=== PATIENT | male | born 1960 | race Caucasian/White ===

== ENCOUNTER → 2017-12-15 11:41 | Outpatient (CLI) | payer OTHER, SELFPAY ==
[2016-07-15 10:35] VITALS: BMI 30.8
[2017-12-15 15:42] LABS: Anion Gap 7 (5-15); BUN 18 mg/dL (7-18); BUN/Creat Ratio 17.8 RATIO (10-20); Calcium,Total 8.3 mg/dL (8.5-10.1); Chloride 107 mmol/L (98-107); Creatinine, Serum 1.01 mg/dL (0.70-1.30); EST Glomerular Filtration Rate 82 mL/min (>60); Est Glom Filt Rate - Afr Amer 99 mL/min (>60); Glucose 147 mg/dL (74-106); Sodium Level 138 mmol/L (136-145)
== END ==
PROVIDERS: Family Provider Family Medicine; PCP Family Medicine; Visit Provider Family Medicine
DX: E11.9 Type 2 diabetes mellitus without complications (principal)
CPT/HCPCS: 36415; 80048

== ENCOUNTER → 2018-07-27 11:11 | Outpatient (CLI) | payer OTHER, SELFPAY ==
[2016-07-15 10:35] VITALS: BMI 30.8
[2018-07-27 12:31] LABS: Anion Gap 8 (5-15); BUN 16 mg/dL (7-18); Chloride 106 mmol/L (98-107); Creatinine, Serum 0.94 mg/dL (0.70-1.30); EST Glomerular Filtration Rate 88 mL/min (>60); Est Glom Filt Rate - Afr Amer 107 mL/min (>60); Glucose 134 mg/dL (74-106); Potassium 4.5 mmol/L (3.5-5.1); Sodium Level 140 mmol/L (136-145)
[2018-07-27 12:55] LABS: Microalbumin:Creatinine Ratio 123.6 mg/g CRE (<30 mg/g CRE)
== END ==
PROVIDERS: Family Provider Family Medicine; PCP Family Medicine; Visit Provider Family Medicine
DX: E11.9 Type 2 diabetes mellitus without complications (principal)
CPT/HCPCS: 36415; 80048; 82043; 82570

== ENCOUNTER → 2019-03-22 16:55 | Outpatient (CLI) | payer OTHER, SELFPAY ==
[2016-07-15 10:35] VITALS: BMI 30.8
[2019-03-22 17:34] LABS: Absolute Lymphocyte Count 2.22 X10^3/uL (0.83-4.51); Absolute Neutrophil Count 4.4 X10^3/uL (2.0-7.7); Basophil# 0.04 X10^3/uL; Basophil% 0.5 % (0-1); Eosinophils% 2.6 % (0-5); Hematocrit 45.2 % (40-54); Lymphocyte # 2.22 X10^3/ul (4.0); Lymphocyte % 28.4 % (19-41); Mean Corp Hgb Conc 33.2 g/dL (32-36); Mean Corpuscular Hgb 27.8 pg (27.0-32.0); Mean Corpuscular Volume 83.9 fL (80-94); Mean Platelet Vol. 9.1 fl (6.2-12.0); Monocyte# 0.93 X10^3/uL; Monocyte% 11.9 % (0-10); NRBC Flagged by Analyzer 0 % (0-5); Neutrophil # 4.41 X10^3/uL (2.7-7.7); Neutrophil % 56.3 % (47-70); Platelet Count 262 K/mm3 (150-450); RBC Distribution Width CV 12.7 % (11.6-14.6); RBC Distribution Width SD 38.7 fl (35.1-43.9); Red Blood Count 5.39 M/mm3 (4.6-6.2); White Blood Count 7.8 K/mm3 (4.4-11.0)
[2019-03-22 17:40] LABS: Erythrocyte Sedimentation Rate 9 mm/hr (0-20)
== END ==
PROVIDERS: Family Provider Family Medicine; PCP Family Medicine; Referring Provider Family Medicine; Visit Provider Family Medicine
DX: L95.9 Vasculitis limited to the skin, unspecified (principal)
CPT/HCPCS: 36415; 85025; 85652

== ENCOUNTER → 2019-08-16 16:51 | Outpatient (CLI) | payer OTHER, SELFPAY ==
[2016-07-15 10:35] VITALS: BMI 30.8
[2019-08-16 17:54] LABS: Microalbumin,Random Urine 64.2 mg/L (NO RANGE EST.); Microalbumin:Creatinine Ratio 37.1 mg/g CRE (<30 mg/g CRE)
[2019-08-16 17:59] LABS: AST(SGOT) 29 U/L (15-37); Alanine Aminotransfer ALT/SGPT 45 U/L (16-61); Alkaline Phosphatase 94 U/L (45-117); Anion Gap 4 (5-15); BUN 19 mg/dL (7-18); BUN/Creat Ratio 13.1 RATIO (10-20); Bilirubin, Direct 0.07 mg/dL (0.00-0.30); Calcium,Total 9.1 mg/dL (8.5-10.1); Chloride 109 mmol/L (98-107); Cholesterol 186 mg/dL (200); Creatinine, Serum 1.45 mg/dL (0.70-1.30); EST Glomerular Filtration Rate 53 mL/min (>60); Est Glom Filt Rate - Afr Amer 65 mL/min (>60); Globulin 3.9 g/dL (2.2-4.2); Glucose 112 mg/dL (74-106); High Density Lipoprotein 47 mg/dL; Potassium 3.8 mmol/L (3.5-5.1); Protein, Total 7.9 g/dL (6.4-8.2); Sodium Level 141 mmol/L (136-145); Thyroid Stim Hormone (TSH) 0.71 uIU/mL (0.358-3.74); Triglycerides 129 mg/dL; Very Low Density Lipoprotein 26 mg/dL (5-40)
== END ==
PROVIDERS: PCP Family Medicine; Referring Provider Family Medicine; Visit Provider Family Medicine
DX: E11.9 Type 2 diabetes mellitus without complications (principal)
CPT/HCPCS: 36415; 80048; 80061; 80076; 82043; 82570; 84443

== ENCOUNTER → 2020-06-11 14:39 | Outpatient (CLI) | payer OTHER, SELFPAY ==
[2016-07-15 10:35] VITALS: BMI 30.8
--- NOTE | 2020-06-11 14:41 | RAD_ITS ---
STUDY: X-RAY CHEST REASON FOR EXAM: Male, 59 years old. asthma exacerbation, head cold turned into chest cold TECHNIQUE: Frontal and lateral views of the chest. COMPARISON: None. FINDINGS: The lungs are hyperexpanded. There are coarsened interstitial markings suggestive of mild chronic fibrosis. No gross focal infiltrates. No gross effusions. Normal size heart. Normal mediastinum and sean. Normal visualized pulmonary arteries. Normal visualized aortic arch and descending thoracic aorta. There are diffuse degenerative changes of the visualized thoracic spine. Normal visualized ribs, clavicles, and shoulders. There is no demonstrated abnormality of the visualized soft tissue structures of the upper abdomen. RAD/Chest PA and Lateral IMPRESSION: There are findings consistent with COPD. There is no evidence of acute chest disease. Electronically Signed: Chaz Davenport MD at 23:10 EST , Service support ,
== END ==
PROVIDERS: PCP Family Medicine; Referring Provider Family Medicine; Visit Provider Family Medicine
DX: J45.901 Unspecified asthma with (acute) exacerbation (principal)
CPT/HCPCS: 71046

== ENCOUNTER → 2021-01-05 09:52 | Outpatient (CLI) | payer OTHER, SELFPAY ==
[2016-07-15 10:35] VITALS: BMI 30.8
[2021-01-05 12:47] LABS: AST(SGOT) 25 U/L (15-37); Alanine Aminotransfer ALT/SGPT 48 U/L (16-61); Albumin, Serum 3.9 g/dL (3.2-5.0); Alkaline Phosphatase 130 U/L (45-117); Anion Gap 5 (5-15); BUN 21 mg/dL (7-18); BUN/Creat Ratio 20.2 RATIO (10-20); Bilirubin, Direct 0.15 mg/dL (0.00-0.30); Calcium,Total 8.9 mg/dL (8.5-10.1); Chloride 103 mmol/L (98-107); Cholesterol 208 mg/dL (200); Creatinine, Serum 1.04 mg/dL (0.70-1.30); EST Glomerular Filtration Rate 78 mL/min (>60); Est Glom Filt Rate - Afr Amer 94 mL/min (>60); Globulin 3.5 g/dL (2.2-4.2); Glucose 295 mg/dL (74-106); High Density Lipoprotein 63 mg/dL; Potassium 4.2 mmol/L (3.5-5.1); Protein, Total 7.4 g/dL (6.4-8.2); Sodium Level 135 mmol/L (136-145); Thyroid Stim Hormone (TSH) 0.75 uIU/mL (0.358-3.74); Triglycerides 96 mg/dL; Very Low Density Lipoprotein 19 mg/dL (5-40)
== END ==
PROVIDERS: PCP Family Medicine; Referring Provider Family Medicine; Visit Provider Family Medicine
DX: E11.9 Type 2 diabetes mellitus without complications (principal)
CPT/HCPCS: 36415; 80048; 80061; 80076; 84443

== ENCOUNTER 2021-07-27 09:09 | Outpatient (CLI) | payer OTHER, SELFPAY ==
[2021-06-07 08:57] VITALS: BMI 30.8
--- NOTE | 2021-07-27 09:27 | RAD_ITS ---
STUDY: X-RAY - LUMBAR SPINE REASON FOR EXAM: Male, 60 years old. LOW BACK PAIN low back pain TECHNIQUE: XR Spine Lumbar 2 or 3 Views COMPARISON: None FINDINGS: Normal lumbar lordosis. There is a levoscoliosis of the lumbar spine. There is a normal alignment of the vertebrae. There is multilevel endplate spondylosis of the lumbar vertebrae. There is multi-level degenerative disc disease with multi-level disc space narrowing. The soft tissue structures are unremarkable. RAD/Lumbar Spine 2 or 3 Views IMPRESSION: Degenerative changes of the spine, as detailed above. Electronically Signed: Garrick Paulson MD at 18:55 EST ,
--- NOTE | 2021-07-27 09:27 | RAD_ITS ---
EXAM: XR CERVICAL SPINE, 2 OR 3 VIEWS CLINICAL INDICATION: Neck pain TECHNIQUE: Frontal and lateral views of the cervical spine. This report was created using [employer] report generation technology. COMPARISON: None. FINDINGS: VERTEBRAE: Unremarkable. Preserved vertebral body height. No acute fracture. No spondylolisthesis. Preservation of the normal cervical lordosis. No significant facet arthropathy. DISC SPACES: Anterior osteophytes visualized from C4-5, C5-6, C6-7. SOFT TISSUES: Unremarkable. No prevertebral soft tissue widening. LUNG APICES: Clear. RAD/Cerv Spine 2 or 3 Views IMPRESSION: Mild degenerative findings in the cervical spine. Electronically Signed: Garrick Paulson MD at 18:56 EST ,
[2021-07-27 11:17] LABS: Hematocrit 48.1 % (40-54); Hemoglobin 15.8 g/dL (13.0-16.5); Mean Corp Hgb Conc 32.8 g/dL (32-36); Mean Corpuscular Hgb 27.8 pg (27.0-32.0); Mean Corpuscular Volume 84.5 fL (80-94); Mean Platelet Vol. 9.9 fl (6.2-12.0); Platelet Count 279 K/mm3 (150-450); RBC Distribution Width CV 12.5 % (11.6-14.6); RBC Distribution Width SD 38.5 fl (35.1-43.9); Red Blood Count 5.69 M/mm3 (4.6-6.2); White Blood Count 8.1 K/mm3 (4.4-11.0)
[2021-07-27 11:48] LABS: Vitamin B12 626 pg/mL (211-911)
[2021-07-27 12:28] LABS: AST(SGOT) 48 U/L (15-37); Alanine Aminotransfer ALT/SGPT 46 U/L (16-61); Albumin, Serum 3.9 g/dL (3.2-5.0); Alkaline Phosphatase 94 U/L (45-117); Anion Gap 7 (5-15); BUN 20 mg/dL (7-18); BUN/Creat Ratio 16.4 RATIO (10-20); Calcium,Total 9.2 mg/dL (8.5-10.1); Chloride 106 mmol/L (98-107); Creatinine, Serum 1.22 mg/dL (0.70-1.30); EST Glomerular Filtration Rate 65 mL/min (>60); Est Glom Filt Rate - Afr Amer 78 mL/min (>60); Globulin 3.8 g/dL (2.2-4.2); Glucose 200 mg/dL (74-106); Potassium 4.3 mmol/L (3.5-5.1); Protein, Total 7.7 g/dL (6.4-8.2); Sodium Level 139 mmol/L (136-145); Thyroid Stim Hormone (TSH) 0.95 uIU/mL (0.358-3.74)
[2021-07-28 17:08] LABS: Free Kappa Light Chains 17.2 mg/L (3.3-19.4); Free Lambda Light Chains 11.4 mg/L (5.7-26.3)
== END 2021-07-27 23:59 | disposition short-term general hospital (02) ==
PROVIDERS: PCP Family Medicine; Referring Provider Psychiatry & Neurology Neurology; Visit Provider Psychiatry & Neurology Neurology
DX: E11.9 Type 2 diabetes mellitus without complications (principal); M25.78 Osteophyte, vertebrae; M47.816 Spondylosis without myelopathy or radiculopathy, lumbar region; M51.36 Other intervertebral disc degeneration, lumbar region; M48.061 Spinal stenosis, lumbar region without neurogenic claudication
CPT/HCPCS: 36415; 72040; 72100; 80053; 82607; 82746; 83883; 84443; 85027

== ENCOUNTER 2021-08-09 08:41 | Outpatient (CLI) | payer OTHER, SELFPAY ==
[2021-06-07 08:57] VITALS: BMI 30.8
--- NOTE | 2021-08-09 08:45 | EKG12_ITS ---
Test Reason : ROUTINE Blood Pressure : / mmHG Vent. Rate : 086 BPM Atrial Rate : 086 BPM P-R Int : 192 ms QRS Dur : 086 ms QT Int : 378 ms P-R-T Axes : 045 042 091 degrees QTc Int : 452 ms Sinus rhythm with occasional Premature ventricular complexes Otherwise normal ECG Confirmed by ROD GARG, JARVIS ([id number]), school photograph editor ELEANOR CARABALLO ([id number]) on 08/10/2021 12:59:41 PM Referred By: Axel Elizabeth Confirmed By:JARVIS VELASCO MD
== END 2021-08-09 23:59 | disposition home or self-care (01) ==
LOC: PSN 08:44
PROVIDERS: PCP Family Medicine; Referring Provider Psychiatry & Neurology Neurology; Visit Provider Psychiatry & Neurology Neurology
DX: I49.9 Cardiac arrhythmia, unspecified (principal)
CPT/HCPCS: 93005

== ENCOUNTER 2021-08-23 07:09 | Outpatient (CLI) | payer OTHER, SELFPAY ==
[2021-06-07 08:57] VITALS: BMI 30.8
--- NOTE | 2021-08-23 08:42 | NEURO_ITS ---
NCS and/or EMG Patient Report Ordering Doctor: Axel Elizabeth DATE OF SERVICE: 08/23/21 Indication: Multiples neurological complaints. He experiences bilateral hand pain and numbness (concentrated in digits 1-3). He has shoulder pain which will intermittently radiate down to the hands (right greater than left). He has chronic neck pain and a medical history significant for diabetes (HbA1c ~8.0%). Evaluate for cervical radiculopathy and/or entrapment neuropathy in both upper extremities. Findings: Nerve conduction studies were performed in the right and left upper extremities. The right median motor study recording the abductor pollicis brevis showed a normal amplitude, prolonged distal latency and mildly slowed conduction velocity. The right ulnar motor study recording the abductor digiti minimi showed a normal amplitude, normal distal latency and normal conduction velocity. No conduction block or focal slowing was present across the elbow. Right median- ulnar lumbrical / interosseous motor latencies showed an absent median response. The right median sensory response recording digit two showed an absent response. The right ulnar sensory response recording digit five showed a borderline amplitude, normal latency and borderline conduction velocity. The right radial sensory response recording over the extensor snuff box showed a normal amplitude, latency and conduction velocity. The left median motor study recording the abductor pollicis brevis showed a borderline amplitude, prolonged distal latency and mildly slowed conduction velocity. The left ulnar motor study recording the abductor digiti minimi showed a normal amplitude, normal distal latency and normal conduction velocity. No conduction block or focal slowing was present across the elbow. The left median sensory response recording digit two showed a normal amplitude, prolonged latency and markedly slowed conduction velocity. The left ulnar sensory response recording digit five showed a normal amplitude (asymmetric to the right), latency and conduction velocity. The left radial sensory response recording over the extensor snuff box showed a normal amplitude, latency and conduction velocity. Needle EMG of the right upper extremity and cervical paraspinal muscles was performed. No denervation was seen in any muscle. Motor units in the abductor pollicis brevis were large amplitude, long duration with markedly reduced recruitment. All other motor unit morphology, activation and recruitment patterns were normal. Needle EMG of the left upper extremity and cervical paraspinal muscles was performed. No denervation was seen in any muscle. Insertional activity was increased in the triceps. Motor units in the triceps and flexor soraya radialis were large amplitude, long duration with reduced recruitment. All other motor unit morphology, activation and recruitment patterns were normal. Impression: This is an abnormal study. There is electrophysiologic evidence of median neuropathy across the wrist in both upper extremities. The pathophysiology was predominantly demyelinating with no active denervation of the thenar muscles on either side. These findings are compatible with the clinical diagnosis of carpal tunnel syndrome. On the left, there is additional electrophysiologic evidence consistent with a chronic C7 radiculopathy. In addition, there was no definitive evidence of ulnar neuropathy in either limb. While both ulnar sensory responses were within normal limits, the asymmetry is of unclear significance. If cubital tunnel syndrome remains a high clinical suspicion, further evaluation with neuromuscular ultrasound could be considered. Please note: the study requisition was for four extremities. This could not be completed within the allotted time for this procedure. The upper extremities were examined as the patient stated this was the most bothersome. He will be scheduled for a separate encounter to evaluate the lower extremities. Gil Eugene D.O. Multi Select Codes Neurology Neurology Interp Codes: 03081-98 Musc test done w/n test comp (interp) (Qty:2) and 40127-49 Nrv cndj test 11-12 studies (interp)
== END 2021-08-23 23:59 | disposition home or self-care (01) ==
LOC: PSN 07:10
PROVIDERS: PCP Family Medicine; Referring Provider Psychiatry & Neurology Neurology; Visit Provider Psychiatry & Neurology Neurology
DX: G56.00 Carpal tunnel syndrome, unspecified upper limb (principal); G56.20 Lesion of ulnar nerve, unspecified upper limb; M54.2 Cervicalgia
CPT/HCPCS: 95886; 95912

== ENCOUNTER 2021-09-17 07:19 | Outpatient (CLI) | payer OTHER, SELFPAY ==
[2021-06-07 08:57] VITALS: BMI 30.8
--- NOTE | 2021-09-17 09:33 | NEURO ---
NCS and/or EMG Patient Report Ordering Doctor: Axel Elizabeth DATE OF SERVICE: 09/17/21 Indication: Numbness, tingling and tightness in both feet. History of diabetes. Evaluate for peripheral neuropathy. Findings: Nerve conduction studies were performed in the right and left lower extremities (upper extremities evaluated previously). The right peroneal motor study recording the extensor digitorum brevis showed a normal amplitude, normal distal latency and mildly slowed conduction velocity. No conduction block or focal slowing was present across the fibular neck. The right tibial motor study recording the abductor hallucis brevis showed a reduced amplitude, normal distal latency and mildly slowed conduction velocity. Right sural sensory response showed a reduced amplitude and slowed conduction velocity. Right superficial peroneal sensory response was absent. The left peroneal motor study recording the extensor digitorum brevis showed a borderline amplitude, normal distal latency and slowed conduction velocity. No conduction block or focal slowing was present across the fibular neck. The left tibial motor study recording the abductor hallucis brevis showed a reduced amplitude, normal distal latency and slowed conduction velocity. Left sural sensory response showed a reduced amplitude and slowed conduction velocity. Left superficial peroneal sensory response was absent. Needle EMG of the right lower extremity muscles was performed. The paraspinal muscles were note sampled due to the common presence of fibrillations in the diabetic population. No denervation was present in any muscle. Insertional activity was increased in distal muscles. Motor units in the extensor hallucis longus were large amplitude and long duration. All other motor unit morphology, activation, and recruitment patterns were normal. Needle EMG of the left lower extremity muscles was performed. The paraspinal muscles were note sampled due to the common presence of fibrillations in the diabetic population. No denervation was present in any muscle. Insertional activity was increased in distal muscles. Motor units in the extensor hallucis longus were large amplitude and long duration. All other motor unit morphology, activation, and recruitment patterns were normal. Impression: This is an abnormal study. There is electrophysiologic evidence consistent with a length dependent, axonal, sensorimotor, peripheral polyneuropathy. Gil Eugene D.O. Multi Select Codes Neurology Neurology Interp Codes: 34672-01 Musc test done w/n test comp (interp) (Qty:2) and 69072-68 Nrv cndj test 7-8 studies (interp)
== END 2021-09-17 23:59 | disposition home or self-care (01) ==
LOC: PSN 07:20
PROVIDERS: PCP Family Medicine; Referring Provider Psychiatry & Neurology Neurology; Visit Provider Psychiatry & Neurology Neurology
DX: G62.9 Polyneuropathy, unspecified (principal)
CPT/HCPCS: 95886; 95910

== ENCOUNTER → 2022-01-07 | Outpatient (CLI) | payer OTHER, SELFPAY ==
[2021-06-07 08:57] VITALS: BMI 30.8
[2022-01-07 12:18] LABS: AST(SGOT) 26 U/L (15-37); Alanine Aminotransfer ALT/SGPT 39 U/L (16-61); Albumin, Serum 3.9 g/dL (3.2-5.0); Alkaline Phosphatase 80 U/L (45-117); Anion Gap 6 (5-15); BUN 16 mg/dL (7-18); BUN/Creat Ratio 13.3 RATIO (10-20); Bilirubin, Direct 0.17 mg/dL (0.00-0.30); Calcium,Total 9.3 mg/dL (8.5-10.1); Chloride 105 mmol/L (98-107); Cholesterol 206 mg/dL (200); EST Glomerular Filtration Rate 66 mL/min (>60); Est Glom Filt Rate - Afr Amer 80 mL/min (>60); Globulin 3.7 g/dL (2.2-4.2); Glucose 200 mg/dL (74-106); High Density Lipoprotein 51 mg/dL; Protein, Total 7.6 g/dL (6.4-8.2); Sodium Level 139 mmol/L (136-145); Triglycerides 103 mg/dL; Very Low Density Lipoprotein 21 mg/dL (5-40)
[2022-01-07 12:32] LABS: Microalbumin:Creatinine Ratio 86.2 mg/g CRE (<30 mg/g CRE)
== END | disposition home or self-care (01) ==
LOC: MFPLAB 10:21
PROVIDERS: PCP Family Medicine; Referring Provider Family Medicine; Visit Provider Family Medicine
DX: E11.9 Type 2 diabetes mellitus without complications (principal)
CPT/HCPCS: 36415; 80048; 80061; 80076; 82043; 82570

== ENCOUNTER → 2022-01-18 | Outpatient (CLI) | payer OTHER, SELFPAY ==
[2021-06-07 08:57] VITALS: BMI 30.8
--- NOTE | 2022-01-18 09:01 | RAD_ITS ---
EXAM: XR RIGHT SHOULDER COMPLETE, 2 OR MORE VIEWS CLINICAL INDICATION: pain in right shoulder TECHNIQUE: Two or more views of the right shoulder. This report was created using [employer] report generation technology. COMPARISON: None. FINDINGS: BONES/JOINTS: There is narrowing of the acromioclavicular joint. No acute fracture. No subluxation. Normal alignment. No sclerotic or destructive changes observed. SOFT TISSUES: Unremarkable. No soft tissue swelling or gas. No radiopaque foreign body. RAD/Shoulder min 2 Views IMPRESSION: No acute osseous abnormalities. There are degenerative changes with narrowing of the acromioclavicular joint. Electronically Signed: Richard Juan MD at 2:32 EDT ,
== END | disposition home or self-care (01) ==
PROVIDERS: PCP Family Medicine; Referring Provider Psychiatry & Neurology Neurology; Visit Provider Psychiatry & Neurology Neurology
DX: M25.511 Pain in right shoulder (principal)
CPT/HCPCS: 73030

== ENCOUNTER 2022-05-12 12:24 | Inpatient (IN) | payer OTHER, SELFPAY ==
[2021-06-07 08:57] VITALS: BMI 30.8
[2022-05-12] VITALS (12 sets, daily range): BP systolic 151–185; BP diastolic 89–112; PULSE 105–119; RESP 15–22; TEMP 36.2–37.7; O2SAT 93–99; BMI 31.6; BMI 31.1
--- NOTE | 2022-05-12 12:39 | RAD_ITS ---
STUDY: X-RAY CHEST REASON FOR EXAM: Male, 61 years old. Chest pain TECHNIQUE: Single AP portable view of the chest. COMPARISON: Comparison is made with prior chest radiograph dated 06/11/2020. FINDINGS: EKG electrodes are seen. Small left pleural effusion with left basilar infiltrate. Blunting of the right costophrenic angle with increased markings at the right lung base. Follow-up is recommended. Normal size heart. Normal mediastinum and sean. Normal visualized pulmonary arteries. Normal visualized aortic arch and descending thoracic aorta. There are diffuse degenerative changes of the visualized thoracic spine. Normal visualized ribs, clavicles, and shoulders. There is no demonstrated abnormality of the visualized soft tissue structures of the upper abdomen. RAD/Chest 1 View (Portable) IMPRESSION: Small left pleural effusion with left basilar infiltrate in the peripheral aspect. Blunting of the right costophrenic angle with mild increased markings at the right lung base. Follow-up recommended. Electronically Signed: Al Singh MD at 13:53 EST ,
--- NOTE | 2022-05-12 12:40 | ED.VIS.CHEST ---
HPI History of Present Illness Chief Complaint: Chest Pain Narrative Narrative: 61-year-old male past medical history of irregular heartbeat for which she had a stress test a few months ago, states that he has had chest pain that is been relatively constant since yesterday morning. It is under his left pectoral area. He describes it as sharp and stabbing. It is better when he sits still and rest. He denies any nausea or vomiting. No diaphoresis. He does state that he becomes more short of breath on exertion. No recent fever or chills. No cough. No leg swelling. He presents mainly because a left-sided chest pain. He denies any DVT or PE risk factors. [facility] Medical History Arthritis Asthma Diabetes GERD (gastroesophageal reflux disease) Neuropathy Home Medications dulaglutide 3 mg/0.5 mL subcutaneous pen injector 0.75 mg subcut QWEEK 07/27/21 [History Last Taken Unknown] fluticasone 500 mcg-salmeterol 50 mcg/dose blistr powdr for inhalation 1 inh inhalation BID 07/27/21 [History Last Taken Unknown] ibuprofen 200 mg tablet (Advil) 200 mg PO Q6H PRN 07/27/21 [History Last Taken Unknown] montelukast 10 mg tablet 10 mg PO DAILY 07/27/21 [History Last Taken Unknown] Bilateral wrist splints for carpal tunnel syndrome #2 ea 01/18/22 [Rx Last Taken Unknown] Allergy/AdvReac Type Severity Reaction Status Date / Time shellfish derived Allergy Intermediate Hives Verified 05/12/22 12:25 Family History Father Black lung Emphysema lung Mother Diabetes Heart disease Arthritis Social History Smoking Status: Never smoker Electronic Cigarette Use: not used second hand exposure: No alcohol intake: current alcohol intake frequency: holidays/special occasions only substance use type: does not use ROS ROS ED ROS Narrative Constitutional: No fever, no chills. HEENT: No sore throat. No neck pain. No loss of vision. No rhinorrhea. Cardiovascular: Left-sided sharp, stabbing chest pain. No palpitations. No pedal edema. Respiratory: No cough, positive dyspnea on exertion/shortness of breath. Abdominal: No abdominal pain. No nausea. No vomiting. Genitourinary: No dysuria. No hematuria. Musculoskeletal: No myalgias. No arthralgias. Neurologic: No headaches. No dizziness. No lightheadedness. Skin: No rash. No change in color. Psychiatric: No depression. No anxiety. EXAM Physical Exam Narrative Exam Narrative: Afebrile. Vital signs noted. HEENT: Normocephalic. Atraumatic. PERRL, EOMI. Neck soft and supple. No point tenderness or step off. Cardiovascular: Regular tachycardia, no murmurs, rubs, or gallops appreciated. Respiratory: No tachypnea. Lungs clear to auscultation bilaterally. Gastrointestinal: Abdomen soft, nontender, with normoactive bowel sounds. No rebound or guarding. Neurological: Awake. Alert. Nonfocal, nonlateralizing. Skin: No rash. Normal color. No pallor. Musculoskeletal: No pedal edema. Full range of motion extremities. Const Vital Signs: 05/12/22 12:25 05/12/22 12:54 05/12/22 12:54 Temperature 97.2 F L Temperature Source Temporal Pulse Rate 119 H 115 H Respiratory Rate 18 18 Respiratory Pattern Blood Pressure 185/104 H 179/103 H Blood Pressure Mean 131 128 Pulse Ox 97 95 95 Oxygen Delivery Method Room Air Room Air Room Air 05/12/22 12:54 Temperature Temperature Source Pulse Rate Respiratory Rate Respiratory Pattern Tachypnea Blood Pressure Blood Pressure Mean Pulse Ox Oxygen Delivery Method Heart Score History: Slightly/Non-Suspicious ECG: Normal Age: >45 - <65 years Risk Factors: 1 or 2 Risk Factors Score: 2 MDM MDM MDM Narrative Medical decision making narrative: EKG interpreted by myself demonstrates sinus tachycardia at 112 bpm without ectopy or acute ST changes. No STEMI. Chest x-ray interpreted by myself shows a left lower lobe pneumonia. He has an elevated WBC count of 23.8, hemoglobin normal at 15.3 with hematocrit 45.9. Platelet count normal at 304. Given his tachycardia and reported left-sided chest pain, D-dimer has returned elevated at 2.74. He is mildly dehydrated with a sodium of 131, chloride 95, BUN of 21 with a normal creatinine of 1.3. Lactic acid is normal at 1.7. Blood cultures and urine cultures are pending. Does appear that he might have slight urinary tract infection although he is not showing signs of dysuria or hematuria. Initial high-sensitivity troponin is 6. Given his SIRS and pneumonia, I do feel he needs admission. He was started on Levaquin as an antibiotic. CTA was obtained because of the elevated D-dimer which does not show any evidence of dissection or pulmonary embolism, however it may appear that he has bilateral pneumonia with consolidation on the left and patchy infiltrate on the right. Patient was then discussed with Dr. Huizar for admission to the PCU. Currently, patient is in stable condition. Lab Data Attestation: I reviewed the patient's lab results. Labs: Laboratory Results - last 24 hr 05/12/22 05/12/22 05/12/22 12:38 12:38 12:38 WBC 23.8 H RBC 5.46 Hgb 15.3 Hct 45.9 MCV 84.1 MCH 28.0 MCHC 33.3 RDW Std Deviation 37.8 RDW Coeff of Randall 12.5 Plt Count 304 MPV 9.6 Immature Gran % (Auto) 1.700 H Neut % (Auto) 88.0 H Lymph % (Auto) 3.0 L Sandoval % (Auto) 7.0 Eos % (Auto) 0.0 Baso % (Auto) 0.3 Absolute Neuts (auto) 20.9 H Absolute Lymphs (auto) 0.71 L Nucleated RBC % 0 Diff Path Review May foll PT INR APTT D-Dimer Quant (PE/DVT) 2.74 H* Sodium 131 L Potassium 4.0 Chloride 95 L Carbon Dioxide 25.0 Anion Gap 11 BUN 21 H Creatinine 1.30 Estim Creat Clear Calc 75.12 Est GFR (MDRD) Af Amer 73 Est GFR (MDRD) Non-Af 60 BUN/Creatinine Ratio 16.2 Glucose 430 H Lactic Acid Calcium 10.3 H Troponin I High Sens 6 B-Natriuretic Peptide Urine Color Urine Clarity Urine pH Ur Specific [place] Urine Protein Urine Glucose (UA) Urine Ketones Urine Occult Blood Urine Nitrite Urine Bilirubin Urine Urobilinogen Ur Leukocyte Esterase Urine RBC Urine WBC Ur Squamous Epith Cells Urine Bacteria Urine Mucus 05/12/22 05/12/22 05/12/22 12:38 12:38 13:38 WBC RBC Hgb Hct MCV MCH MCHC RDW Std Deviation RDW Coeff of Randall Plt Count MPV Immature Gran % (Auto) Neut % (Auto) Lymph % (Auto) Sand[place] % (Auto) Eos % (Auto) Baso % (Auto) Absolute Neuts (auto) Absolute Lymphs (auto) Nucleated RBC % Diff Path Review PT 15.7 H INR 1.3 APTT 33.9 D-Dimer Quant (PE/DVT) Sodium Potassium Chloride Carbon Dioxide Anion Gap BUN Creatinine Estim Creat Clear Calc Est GFR (MDRD) Af Amer Est GFR (MDRD) Non-Af BUN/Creatinine Ratio Glucose Lactic Acid 1.7 Calcium Troponin I High Sens B-Natriuretic Peptide 8.8 Urine Color Urine Clarity Urine pH Ur Specific [place] Urine Protein Urine Glucose (UA) Urine Ketones Urine Occult Blood Urine Nitrite Urine Bilirubin Urine Urobilinogen Ur Leukocyte Esterase Urine RBC Urine WBC Ur Squamous Epith Cells Urine Bacteria Urine Mucus 05/12/22 13:42 WBC RBC Hgb Hct MCV MCH MCHC RDW Std Deviation RDW Coeff of Randall Plt Count MPV Immature Gran % (Auto) Neut % (Auto) Lymph % (Auto) [place] % (Auto) Eos % (Auto) Baso % (Auto) Absolute Neuts (auto) Absolute Lymphs (auto) Nucleated RBC % Diff Path Review PT INR APTT D-Dimer Quant (PE/DVT) Sodium Potassium Chloride Carbon Dioxide Anion Gap BUN Creatinine Estim Creat Clear Calc Est GFR (MDRD) Af Amer Est GFR (MDRD) Non-Af BUN/Creatinine Ratio Glucose Lactic Acid Calcium Troponin I High Sens B-Natriuretic Peptide Urine Color Yellow Urine Clarity Clear Urine pH 7.0 Ur Specific [place] 1.010 Urine Protein 100 H Urine Glucose (UA) 1000 H Urine Ketones 150 A* Urine Occult Blood 250 H Urine Nitrite Positive H Urine Bilirubin Negative Urine Urobilinogen Normal Ur Leukocyte Esterase 100 H Urine RBC 0 SEEN Urine WBC 10-25 SEEN Ur Squamous Epith Cells 0 SEEN Urine Bacteria 4+ Urine Mucus 0 SEEN Radiography Diagnostic Testing: Clinical Impression(s) from Imaging Studies Chest X-Ray 05/12/22 12:39 IMPRESSION: Small left pleural effusion with left basilar infiltrate in the peripheral aspect. Blunting of the right costophrenic angle with mild increased markings at the right lung base. Follow-up recommended. Electronically Signed: Al Singh MD at 13:53 EST , Chest CTA 05/12/22 13:27 IMPRESSION: Normal CTA chest examination, without a demonstrated pulmonary embolism or arterial dissection. Dense consolidation in the peripheral aspect of the left upper lobe and lingular segment of the left upper lobe as well as patchy infiltrate in the right lower lobe. Tiny left pleural effusion. Radiographic follow-up is recommended following treatment. Left renal cyst. Diffuse fatty infiltration of the liver. Electronically Signed: Al Singh MD at 14:35 EST , Discharge Plan Dx/Rx/DC Orders Clinical Impression: SIRS (systemic inflammatory response syndrome), Pneumonia, UTI (urinary tract infection), Hypertension Disposition Disposition: Acute Care [facility]
[2022-05-12] MEDS: 0.9% Normal Saline 1,000 ML 1000 ML IV (12:51)
[2022-05-12] MEDS: Aspirin 81 MG TAB.CHEW 324 MG PO (12:51)
[2022-05-12 13:01] LABS: Absolute Lymphocyte Count 0.71 X10^3/uL (0.83-4.51); Absolute Neutrophil Count 20.9 X10^3/uL (2.0-7.7); Basophil# 0.06 X10^3/uL; Basophil% 0.3 % (0-1); Eosinophil# 0.01 X10^3/uL; Hematocrit 45.9 % (40-54); Hemoglobin 15.3 g/dL (13.0-16.5); Lymphocyte # 0.71 X10^3/ul (0.83-4.51); Mean Corp Hgb Conc 33.3 g/dL (32-36); Mean Corpuscular Volume 84.1 fL (80-94); Mean Platelet Vol. 9.6 fl (6.2-12.0); Monocyte# 1.67 X10^3/uL; NRBC Flagged by Analyzer 0 % (0-5); Neutrophil # 20.91 X10^3/uL (2.7-7.7); POSITIVE DIFFERENTIAL YES; Platelet Count 304 K/mm3 (150-450); RBC Distribution Width CV 12.5 % (11.6-14.6); RBC Distribution Width SD 37.8 fl (35.1-43.9); Red Blood Count 5.46 M/mm3 (4.6-6.2); White Blood Count 23.8 K/mm3 (4.4-11.0)
[2022-05-12 13:04] LABS: Differential Indicated SCAN CRITERIA MET
[2022-05-12 13:24] LABS: BNP,B-Type NATRIURETIC PEPTIDE 8.8 pg/mL (0-100)
[2022-05-12 13:26] LABS: D-Dimer Quantitative (DVT/PE) 2.74 FEU/ug/m (0.27-0.49)
--- NOTE | 2022-05-12 13:26 | ED.RN ---
D-DIMER 2.74. DR MARTINEZ
--- NOTE | 2022-05-12 13:27 | CT_ITS ---
STUDY: CTA CHEST REASON FOR EXAM: Male, 61 years old. Chest Pain, Elevated D Dimer RADIATION DOSAGE (If Supplied By Facility): CTDIvol = ( 11.23 ) mGy, DLP = ( 498.61 ) mGycm TECHNIQUE: The examination was performed with the intravenous administration of IV 100mL [id number]-[id number]. Post-processing of the angiographic images was performed, with multiplanar reformation and 3D reconstruction. Individualized dose optimization techniques were used for this CT. COMPARISON: Comparison is made with prior chest An earlier today. FINDINGS: Normal enhancement of the main pulmonary artery and right and left pulmonary arteries. Normal enhancement of the bilateral peripheral pulmonary arteries. There is no demonstrated pulmonary embolism. Normal thoracic aorta and visualized great vessels. There is no demonstrated aortic dissection. There are calcifications of the coronary arteries. There are visualized mediastinal lymph nodes, which are within normal size limits, and with normal morphology. Normal hilar regions. Normal visualized trachea and bronchi. Dense consolidation in the left upper lobe and lingular segment of the left upper lobe. This is more prominent along the lateral peripheral aspect. Small left pleural effusion. Patchy infiltrate at the right lung base. Radiographic follow-up is recommended following therapy. Normal pulmonary parenchyma. Normal pleura. Normal chest wall structures. There are degenerative changes of thoracic spine. There is a 1.3 cm cyst in the upper pole of the left kidney. Fatty infiltration of the liver. CT/CTA Chest W/WO Contrast IMPRESSION: Normal CTA chest examination, without a demonstrated pulmonary embolism or arterial dissection. Dense consolidation in the peripheral aspect of the left upper lobe and lingular segment of the left upper lobe as well as patchy infiltrate in the right lower lobe. Tiny left pleural effusion. Radiographic follow-up is recommended following treatment. Left renal cyst. Diffuse fatty infiltration of the liver. Electronically Signed: Al Singh MD at 14:35 EST ,
[2022-05-12 13:28] LABS: Anion Gap 11 (5-15); BUN 21 mg/dL (7-18); BUN/Creat Ratio 16.2 RATIO (10-20); Calcium,Total 10.3 mg/dL (8.5-10.1); Chloride 95 mmol/L (98-107); EST Glomerular Filtration Rate 60 mL/min (>60); Est Glom Filt Rate - Afr Amer 73 mL/min (>60); Estimated Creatinine Clearance 75.12 ml/min; Glucose 430 mg/dL (74-106); Sodium Level 131 mmol/L (136-145); Troponin-I HS (w/2H Reflex) 6 pg/mL (3.0-78.0)
[2022-05-12 13:47] LABS: Mucous, Urine 0 SEEN /hpf (<or=2+); Red Blood Cells-Urine 0 SEEN /hpf (0-5); Squamous Epithelial Cells - UA 0 SEEN /hpf (0-5)
[2022-05-12 13:53] LABS: Color, Urine Yellow (Yellow); Glucose, Dipstick 1000 mg/dl (Normal); Leukocyte Esterase-Dipstick 100 /ul (Negative); Nitrite-Dipstick Positive (Negative); Occult Blood-Urine 250 /ul (Negative); Protein-Dipstick 100 mg/dl (Negative); Urine Bilirubin Dipstick Negative (Negative); Urine Clarity Clear (Clear); Urine Urobilinogen Normal (Normal)
[2022-05-12 14:08] LABS: Ketone-Dipstick 150 mg/dl (Negative)
[2022-05-12 14:10] LABS: Bacteria 4+ /hpf (None Seen); White Blood Cells 10-25 SEEN /hpf (0-5)
[2022-05-12 14:15] LABS: Lactic Acid 1.7 mmol/L (0.4-1.9)
[2022-05-12 14:20] LABS: International Normalized Ratio 1.3; Prothrombin Time (Protime)PT. 15.7 SECONDS (11.7-14.9)
[2022-05-12 14:21] LABS: Partial Thromboplast Time 33.9 Seconds (24.1-36.2)
[2022-05-12 14:55] LABS: Reflex Troponin-HS? (from REC) Y
[2022-05-12] MEDS: levoFLOXacin IV 750 MG/150 ML BAG 100 MG IV (15:15)
[2022-05-12 15:38] LABS: Troponin-I HS 8 pg/mL (3.0-78.0)
--- NOTE | 2022-05-12 15:50 | PCM.HP.STD ---
HPI - General General Date of Admission: 05/12/22 Date of Service: 05/12/22 Chief Complaint: Shortness of breath HPI Narrative Mr. Cordoba is a 61-year-old male with a past medical history of type 2 diabetes on Trulicity, neuropathy, carpal tunnel who presented to [facility] 05/12/2022 with left-sided boob pain. He reports that he has been feeling unwell for several days and took off work yesterday because of a cough and the generalized feeling of being unwell. Around that time he began having the pain and has had somewhat of a sore throat little bit of a runny nose. Has also had shortness of breath over the past couple days with a productive cough though he reports he is unsure of the sputum because he never spits it out. Denies any problems with his bowels, has been urinating more frequently because his glucose has been elevated while he has been ill. In the ED he was noted to have a leukocytosis with a left shift as well as an elevated D-dimer. CTA negative for PE but did demonstrate dense left upper lobe consolidation and patchy infiltrate in right lower lobe. He was given Levaquin and hospitalist called for admission. Upon exam he is on room air with O2 sat of 93%, no increased work of breathing. Reports feeling about the same. Only additional history he gave was chronic knee pain with his left knee bothering him more recently for which she has seen a chiropractor and has been rubbing it and notes that this has been helpful and he is able to walk on it without significant difficulty now. Denies any complaints aside from those mentioned above. Does report his and sister have also been sick but have not been tested for anything and no other known sick contacts. [facility] Medical History (Updated 05/12/22 @ 15:[address] Angela Huizar MD) Arthritis Asthma Broken ankle Diabetes GERD (gastroesophageal reflux disease) Neuropathy Home Medications dulaglutide 3 mg/0.5 mL subcutaneous pen injector 0.75 mg subcut PAINTING 07/27/21 [History Last Taken 05/08/22] fluticasone 500 mcg-salmeterol 50 mcg/dose blistr powdr for inhalation 1 inh inhalation BID 07/27/21 [History Last Taken 05/11/22] ibuprofen 200 mg tablet (Advil) 800 mg PO QHS 07/27/21 [History Last Taken 05/11/22] montelukast 10 mg tablet 10 mg PO QHS 07/27/21 [History Last Taken 05/11/22] Bilateral wrist splints for carpal tunnel syndrome #2 ea 01/18/22 [Rx Last Taken Unknown] Allergy/AdvReac Type Severity Reaction Status Date / Time shellfish derived Allergy Intermediate Hives Verified 05/12/22 12:25 Family History Father Black lung Emphysema lung Mother Diabetes Heart disease Arthritis Social History Smoking Status: Never smoker Electronic Cigarette Use: not used second hand exposure: No alcohol intake: current alcohol intake frequency: holidays/special occasions only substance use type: does not use ROS Constitutional Constitutional: Reports other Details: Generalized feel of being unwell ; Denies change in weight, fever(s) or night sweats Eyes Eyes: Denies change in vision ENT HEENT: Reports nasal congestion and sore throat; Denies headache(s) Cardiovascular Cardiovascular: Reports other Details: Left-sided chest wall pain which is improving Respiratory/Chest Respiratory/Chest: Reports cough, productive cough and shortness of breath with exertion Gastrointestinal Gastrointestinal: Reports other Details: denies changes in bowel or bladder ; Denies abdominal pain Genitourinary Genitourinary: Reports other Details: Increased urination with elevated glucose but no burning on urination Musculoskeletal Musculoskeletal: Reports joint pain and other Details: Bilateral knee pain left greater than right Neurologic Neurologic: Denies dizziness, focal weakness, headache(s), numbness or tingling Psychiatric Psychiatric: Denies anxiety Hematologic/Lymphatic Hematologic/Lymphatic: Denies easy bleeding Allergic/Immunologic Allergic/Immunologic: Reports other Details: denies rashes Vital Signs Vital Signs Vital Signs: 05/12/22 12:25 05/12/22 12:54 05/12/22 12:54 Temperature 97.2 F L Temperature Source Temporal Pulse Rate 119 H 115 H Respiratory Rate 18 18 Respiratory Pattern Blood Pressure 185/104 H 179/103 H Blood Pressure Mean 131 128 Blood Pressure Source Blood Pressure Position Blood Pressure Location Pulse Ox 97 95 95 Oxygen Delivery Method Room Air Room Air Room Air 05/12/22 12:54 05/12/22 15:45 05/12/22 15:19 Temperature 99.8 F H 97.6 F L Temperature Source Temporal Temporal Pulse Rate 106 H 109 H Respiratory Rate 22 H 15 Respiratory Pattern Tachypnea Blood Pressure 159/112 H 173/98 H Blood Pressure Mean 127 123 Blood Pressure Source Monitor Blood Pressure Position Semi-Fowlers Blood Pressure Location Left Arm Pulse Ox 95 99 Oxygen Delivery Method Room Air Room Air 05/12/22 15:21 Temperature Temperature Source Pulse Rate 105 H Respiratory Rate 16 Respiratory Pattern Blood Pressure Blood Pressure Mean Blood Pressure Source Blood Pressure Position Blood Pressure Location Pulse Ox Oxygen Delivery Method Weight Weight: 116.3 kg Body Mass Index (BMI) 31.1 Physical Exam Const alert and oriented x3 General Appearance: cooperative and comfortable HEENT normocephalic and head/scalp atraumatic Eyes EOMs intact bilaterally Neck supple Resp normal respiratory effort Resp Narrative: Diminished throughout Cardio regular rhythm Cardio Narrative: Mildly tachycardic GI soft to palpation, non-tender and non-distended Extremity normal to inspection Skin no rashes or lesions noted Neuro moves all extremities Psych affect normal Results Lab / Micro Data Result Diagrams: 05/12/22 12:38 05/12/22 12:38 Labs: Laboratory Results - last 24 hr 05/12/22 12:38: WBC 23.8 H, RBC 5.46, Hgb 15.3, Hct 45.9, MCV 84.1, MCH 28.0, MCHC 33.3, RDW Std Deviation 37.8, RDW Coeff of Randall 12.5, Plt Count 304, MPV 9.6, Immature Gran % (Auto) 1.700 H, Neut % (Auto) 88.0 H, Lymph % (Auto) 3.0 L, [place] % (Auto) 7.0, Eos % (Auto) 0.0, Baso % (Auto) 0.3, Absolute Neuts (auto) 20.9 H, Absolute Lymphs (auto) 0.71 L, Nucleated RBC % 0, Diff Path Review October05/12/22 12:38: D-Dimer Quant (PE/DVT) 2.74 H* 05/12/22 12:38: Sodium 131 L, Potassium 4.0, Chloride 95 L, Carbon Dioxide 25.0, Anion Gap 11, BUN 21 H, Creatinine 1.30, Estim Creat Clear Calc 75.12, Est GFR (MDRD) Af Amer 73, Est GFR (MDRD) Non-Af 60, BUN/Creatinine Ratio 16.2, Glucose 430 H, Calcium 10.3 H, Troponin I High Sens 6 05/12/22 12:38: B-Natriuretic Peptide 8.8 05/12/22 12:38: PT 15.7 H, INR 1.3, APTT 33.9 05/12/22 13:38: Lactic Acid 1.7 05/12/22 13:42: Urine Color Yellow, Urine Clarity Clear, Urine pH 7.0, Ur Specific [place] 1.010, Urine Protein 100 H, Urine Glucose (UA) 1000 H, Urine Ketones 150 A*, Urine Occult Blood 250 H, Urine Nitrite Positive H, Urine Bilirubin Negative, Urine Urobilinogen Normal, Ur Leukocyte Esterase 100 H, Urine RBC 0 SEEN, Urine WBC 10-25 SEEN, Ur Squamous Epith Cells 0 SEEN, Urine Bacteria 4+, Urine Mucus 0 SEEN 05/12/22 15:17: Troponin I High Sens 8 Radiology Impression Chest X-Ray 05/12/22 12:39 IMPRESSION: Small left pleural effusion with left basilar infiltrate in the peripheral aspect. Blunting of the right costophrenic angle with mild increased markings at the right lung base. Follow-up recommended. Electronically Signed: Al Singh MD at 13:53 EST , Chest CTA 05/12/22 13:27 IMPRESSION: Normal CTA chest examination, without a demonstrated pulmonary embolism or arterial dissection. Dense consolidation in the peripheral aspect of the left upper lobe and lingular segment of the left upper lobe as well as patchy infiltrate in the right lower lobe. Tiny left pleural effusion. Radiographic follow-up is recommended following treatment. Left renal cyst. Diffuse fatty infiltration of the liver. Electronically Signed: Al Singh MD at 14:35 EST , Assessment & Plan Assessment/Plan (1) Community acquired pneumonia: PLAN: Plan #Acute hypoxemia secondary to bilateral pneumonia Shortness of breath with cough and sputum production as well as elevated white count D-dimer was elevated CTA negative for PE but did demonstrate dense left upper lobe consolidation and patchy infiltrate in right lower lobe. Will obtain sputum culture, COVID, respiratory panel Will start on Rocephin and azithromycin BNP is 8.8, first troponin 6 Incentive spirometry Legionella and strep pneumo urine antigens #Type 2 diabetes mellitus Glucose significantly elevated and also noted in urine Will start fluids and insulin Recheck BMP #DVT ppx: Nicholas Huizar MD Charges/Coding Visit Charges Inpatient E&M: 72970 Init Hosp L2
[2022-05-12 16:56] LABS: Bedside Glucose 330 mg/dL (74-106)
[2022-05-12] MEDS: Insulin Lispro 100 UNIT/ML INSULN.PEN SC ×2 (17:11→21:16)
[2022-05-12] MEDS: 0.9% Normal Saline 1,000 ML 100 ML IV (17:17)
[2022-05-12 18:13] LABS: Anion Gap 11 (5-15); BUN 19 mg/dL (7-18); Calcium,Total 9.7 mg/dL (8.5-10.1); Chloride 97 mmol/L (98-107); Creatinine, Serum 1.12 mg/dL (0.70-1.30); EST Glomerular Filtration Rate 71 mL/min (>60); Est Glom Filt Rate - Afr Amer 86 mL/min (>60); Estimated Creatinine Clearance 87.19 ml/min; Glucose 330 mg/dL (74-106); Potassium 3.9 mmol/L (3.5-5.1); Sodium Level 130 mmol/L (136-145)
[2022-05-12 18:55] LABS: Magnesium 2.2 mg/dL (1.6-2.6)
[2022-05-12] MEDS: Budesonide Respules 0.5 MG/2 ML AMPUL.NEB. INHALATION (19:56)
[2022-05-12] MEDS: Albuterol 2.5 MG/3 ML VIAL.NEB. INHALATION (19:56)
[2022-05-12] MEDS: Montelukast 10 MG Tablet PO (21:17)
[2022-05-12 22:55] LABS: Bedside Glucose 381 mg/dL (74-106)
[2022-05-13] VITALS (16 sets, daily range): BP systolic 132–176; BP diastolic 71–97; PULSE 101–123; RESP 16–28; TEMP 36.8–37.7; O2SAT 91–96
[2022-05-13] MEDS: 0.9% Normal Saline 1,000 ML 100 ML IV ×2 (03:33→14:37)
[2022-05-13 05:38] LABS: Absolute Lymphocyte Count 0.69 X10^3/uL (0.83-4.51); Absolute Neutrophil Count 20.4 X10^3/uL (2.0-7.7); Basophil# 0.05 X10^3/uL; Basophil% 0.2 % (0-1); Eosinophil# 0.03 X10^3/uL; Eosinophils% 0.1 % (0-5); Hematocrit 39.6 % (40-54); Hemoglobin 13.3 g/dL (13.0-16.5); Lymphocyte # 0.69 X10^3/ul (0.83-4.51); Lymphocyte % 2.9 % (19-41); Mean Corp Hgb Conc 33.6 g/dL (32-36); Mean Corpuscular Hgb 28.4 pg (27.0-32.0); Mean Corpuscular Volume 84.4 fL (80-94); Mean Platelet Vol. 9.6 fl (6.2-12.0); Monocyte# 2.41 X10^3/uL; Monocyte% 10.1 % (0-10); NRBC Flagged by Analyzer 0 % (0-5); Neutrophil % 85.5 % (47-70); POSITIVE DIFFERENTIAL YES; Platelet Count 299 K/mm3 (150-450); RBC Distribution Width CV 12.6 % (11.6-14.6); RBC Distribution Width SD 37.7 fl (35.1-43.9); Red Blood Count 4.69 M/mm3 (4.6-6.2); White Blood Count 23.9 K/mm3 (4.4-11.0)
[2022-05-13 05:46] LABS: Differential Indicated SCAN CRITERIA MET
[2022-05-13 05:57] LABS: Differential Comment SCANNED
[2022-05-13] MEDS: Insulin Lispro 100 UNIT/ML INSULN.PEN SC ×4 (06:09→22:25)
[2022-05-13 07:06] LABS: Bedside Glucose 318 mg/dL (74-106)
[2022-05-13 07:06] LABS: ALB/GLOB Ratio 0.4 RATIO (0.9-2.4); AST(SGOT) 15 U/L (15-37); Alanine Aminotransfer ALT/SGPT 32 U/L (16-61); Albumin, Serum 2.2 g/dL (3.2-5.0); Alkaline Phosphatase 152 U/L (45-117); Anion Gap 10 (5-15); BUN 20 mg/dL (7-18); BUN/Creat Ratio 17.7 RATIO (10-20); Calcium,Total 9.3 mg/dL (8.5-10.1); Chloride 100 mmol/L (98-107); Creatinine, Serum 1.13 mg/dL (0.70-1.30); EST Glomerular Filtration Rate 71 mL/min (>60); Est Glom Filt Rate - Afr Amer 85 mL/min (>60); Estimated Creatinine Clearance 86.42 ml/min; Globulin 5.1 g/dL (2.2-4.2); Glucose 310 mg/dL (74-106); Magnesium 2.2 mg/dL (1.6-2.6); Potassium 3.8 mmol/L (3.5-5.1); Protein, Total 7.3 g/dL (6.4-8.2); Sodium Level 132 mmol/L (136-145); Thyroid Stim Hormone (TSH) 0.28 uIU/mL (0.358-3.74)
[2022-05-13] MEDS: Albuterol 2.5 MG/3 ML VIAL.NEB. INHALATION ×3 (07:12→19:13)
--- NOTE | 2022-05-13 08:39 | VDLE_ITS ---
Reason For Study: Elevated D-dimer RIGHT LEFT GSV is normal. GSV is normal. CFV is compressible, spontaneous, phasic, CFV is compressible, spontaneous, phasic, competent and demonstrates normal competent, and demonstrates normal augmentation. augmentation. FV is compressible, spontaneous, phasic, FV is compressible, spontaneous, phasic, competent and demonstrates normal competent and demonstrates normal augmentation. augmentation. POP V is compressible, spontaneous, phasic, POP V is compressible, spontaneous, phasic, competent and demonstrates normal competent and demonstrates normal augmentation. augmentation. T/P Trunk is compressible. T/P Trunk is compressible. PTV is compressible. PTV is compressible. RT PerV is compressible. LT PerV is compressible. Procedure This is a venous duplex using B-mode, color flow and spectral Doppler. Exam performed portable in patient room. A preliminary report was called and/or faxed to [facility]. VL/Venous Duplex US - Prasad Extrem Interpretation Summary Deep veins of the bilateral lower extremities are patent and compressible segme ntally. There is no evidence of bilateral lower extremity deep vein thrombosis. The bilateral great saphenous veins appear patent and compressible segmentally. Ordering Physician: Angela Huizar Referring Physician: Arianne Liu M.D. Performed By: Andreina Ji RVT
[2022-05-13] MEDS: Enoxaparin 40 MG/0.4 ML Syringe SC (09:19)
--- NOTE | 2022-05-13 11:10 | CASEMGMT ---
JESSICA SOMMERS COIN ROLLING MACHINE OPERATOR CM to room to meet with patient for initial transition planning/care coordination assessment. JESSICA SOMMERS introduced self and role at [facility]. Pt voices understanding and consents to assessment at this time. Pt resting in bed in no distress at this time. @ bedside. Pt is A/O at this time and answers all questions appropriately. Care providers, pharmacy, and demographics verified/updated at this time. PCP: Dr Liu Specialists: Dr Sparks-cardiology in [place], Dr Elizabeth-neurology, Dr Andreian Santillan--endocrinology in [place]. Pt had an appt w/Dr Santillan today to have Zing system applied, but cx'd it d/t pt @ [facility]. She plans to call and re-schedule it. Preferred Pharmacy: [facility], if they are open. Otherwise, [facility] in [place]. Medications: Pt/ states pt is out of Trulicity and is not sure if there are refills on it. states she will call to inquire if there are any remaining refills available and to notify HOUSTON Tellez RN, CM, once she checks on it. If no refills are remaining, pt will need new rx for Trulicity. JESSICA Cisse, made aware. Insurance: [employer] Prescription Benefit: Yes Living Will/HPOA: Pt does not currently have LW/HCPOA. Made aware SW can complete this while @ [facility] or as an OP, if he chooses to complete. LNOK: , Jayde. 5 children Living Arrangements: Lives w/, Jayde,in 2-story home w/2 steps to enter. Also has ramp entrance.Pt states does well w/the stairs. Independent. Transportation: Pt states drives self and states no transportation concerns at this time. also drives. DME: States has the following DME: Functioning glucometer w/supplies Pt and state no need for further DME at this time. HHC/SNF: No hx of either. No needs identified. Pt wishes to return home and states has no concerns with going home at time of discharge. CM to follow for any further discharge planning/needs. Pt and voice no further concerns/needs at this time. Advised them to ask for CM if any further questions/concerns/needs arise. They voice understanding. PLAN: Home Benita ROJO RN, CM
[2022-05-13] MEDS: Acetaminophen 325 MG Tablet 650 MG PO ×2 (11:39→23:24)
[2022-05-13 12:50] LABS: Bedside Glucose 451 mg/dL (74-106)
--- NOTE | 2022-05-13 13:48 | PCM.PN.HOSP ---
Subjective Subjective Starting to feel somewhat better today. Still some shortness of breath and slight cough but endorses it is better than when he presented. Objective Data Objective Data Vital Signs: Vital Signs Temp Pulse Resp BP Pulse Ox O2 Del Method 98.2 F 114 H 16 159/87 H 93 Room Air 05/13/22 09:22 05/13/22 09:22 05/13/22 09:22 05/13/22 09:22 05/13/22 09:22 05/13/22 09:22 Oxygen Delivery Method Room Air Weight: 117.4 kg Body Mass Index (BMI) 31.1 Intake & Output: Intake and Output for Last 24 Hours 05/11/22 05/12/22 05/13/22 23:59 23:59 23:59 Intake Total 1653.33 / 1653.33 1186.67 / 1186.67 Output Total 400 / 400 Balance 1253.33 / 1253.33 1186.67 / 1186.67 Lab / Micro Data Result Diagrams: 05/13/22 04:54 05/13/22 04:54 Labs: Laboratory Results - last 24 hr 05/12/22 12:38: PT 15.7 H, INR 1.3, APTT 33.9 05/12/22 13:38: Lactic Acid 1.7 05/12/22 13:42: Urine Color Yellow, Urine Clarity Clear, Urine pH 7.0, Ur Specific [place] 1.010, Urine Protein 100 H, Urine Glucose (UA) 1000 H, Urine Ketones 150 A*, Urine Occult Blood 250 H, Urine Nitrite Positive H, Urine Bilirubin Negative, Urine Urobilinogen Normal, Ur Leukocyte Esterase 100 H, Urine RBC 0 SEEN, Urine WBC 10-25 SEEN, Ur Squamous Epith Cells 0 SEEN, Urine Bacteria 4+, Urine Mucus 0 SEEN 05/12/22 15:17: Troponin I High Sens 8 05/12/22 16:33: POC Glucose 330 H 05/12/22 17:06: Sodium 130 L, Potassium 3.9, Chloride 97 L, Carbon Dioxide 22.0, Anion Gap 11, BUN 19 H, Creatinine 1.12, Estim Creat Clear Calc 87.19, Est GFR (MDRD) Af Amer 86, Est GFR (MDRD) Non-Af 71, BUN/Creatinine Ratio 17.0, Glucose 330 H, Calcium 9.7 05/12/22 17:06: Magnesium 2.2 11/17/22 21:15: POC Glucose 381 H 05/13/22 04:54: WBC 23.9 H, RBC 4.69, Hgb 13.3, Hct 39.6 L, MCV 84.4, MCH 28.4, MCHC 33.6, RDW Std Deviation 37.7, RDW Coeff of Randall 12.6, Plt Count 299, MPV 9.6, Immature Gran % (Auto) 1.200 H, Neut % (Auto) 85.5 H, Lymph % (Auto) 2.9 L, [place] % (Auto) 10.1 H, Eos % (Auto) 0.1, Baso % (Auto) 0.2, Absolute Neuts (auto) 20.4 H, Absolute Lymphs (auto) 0.69 L, Nucleated RBC % 0, Differential Comment SCANNED, Diff Path Review October05/13/22 04:54: Sodium 132 L, Potassium 3.8, Chloride 100, Carbon Dioxide 22.0, Anion Gap 10, BUN 20 H, Creatinine 1.13, Estim Creat Clear Calc 86.42, Est GFR (MDRD) Af Amer 85, Est GFR (MDRD) Non-Af 71, BUN/Creatinine Ratio 17.7, Glucose 310 H, Calcium 9.3, Magnesium 2.2, Total Bilirubin 0.80, AST 15, ALT 32, Alkaline Phosphatase 152 H, Total Protein 7.3, Albumin 2.2 L, Globulin 5.1 H, Albumin/Globulin Ratio 0.4 L, TSH 0.28 L 05/13/22 06:08: POC Glucose 318 H 05/13/22 11:10: POC Glucose 451 H* Micro: Microbiology 05/12/22 18:15 Sputum, Expectorated/Coughed Gram Stain - Final 05/12/22 18:15 Sputum, Expectorated/Coughed Respiratory Culture - Preliminary Staphylococcus aureus 05/12/22 13:42 Urine, Clean Catch Urine Culture - Preliminary Culture exhibits no growth. 05/12/22 13:42 Urine, Clean Catch Legionella Antigen - Final 05/12/22 13:42 Urine, Clean Catch Streptococcus pneumoniae Antigen (M - Final 05/12/22 16:15 Mucosa - Nasopharyngeal Respiratory Panel (PCR) - Final 05/12/22 16:15 Mucosa - Nasopharyngeal Influenza Types A,B Direct FA (KIYA) - Final 05/12/22 16:15 Nasal Secretion SARS-CoV-2 Antigen (Rapid) - Final Radiography Diagnostic Testing: Radiology Impression Chest X-Ray 05/12/22 12:39 IMPRESSION: Small left pleural effusion with left basilar infiltrate in the peripheral aspect. Blunting of the right costophrenic angle with mild increased markings at the right lung base. Follow-up recommended. Electronically Signed: Al Singh MD at 13:53 EST , Chest CTA 05/12/22 13:27 IMPRESSION: Normal CTA chest examination, without a demonstrated pulmonary embolism or arterial dissection. Dense consolidation in the peripheral aspect of the left upper lobe and lingular segment of the left upper lobe as well as patchy infiltrate in the right lower lobe. Tiny left pleural effusion. Radiographic follow-up is recommended following treatment. Left renal cyst. Diffuse fatty infiltration of the liver. Electronically Signed: Al Singh MD at 14:35 EST , Physical Exam Const alert and oriented x3 General Appearance: cooperative and comfortable HEENT normocephalic and head/scalp atraumatic Eyes EOMs intact bilaterally Neck supple Resp normal respiratory effort Resp Narrative: Slightly more air movement but still diminished, especially at the bases Cardio regular rhythm Cardio Narrative: Mildly tachycardic GI soft to palpation, non-tender and non-distended Extremity normal to inspection Extremity Narrative: Right leg warmer compared to the left leg Skin no rashes or lesions noted Neuro moves all extremities Psych affect normal Assessment & Plan Assessment/Plan (1) Community acquired pneumonia: PLAN: Plan #Acute hypoxemia secondary to bilateral pneumonia Shortness of breath with cough and sputum production as well as elevated white count D-dimer was elevated CTA negative for PE but did demonstrate dense left upper lobe consolidation and patchy infiltrate in right lower lobe. Will obtain sputum culture, COVID, respiratory panel Will start on Rocephin and azithromycin BNP is 8.8, first troponin 6 Incentive spirometry Legionella and strep pneumo urine antigens Limits/CT in: Growing staph RES in sputum, will DC Rocephin and start Vanco until sensitivities come back #Type 2 diabetes mellitus Glucose significantly elevated and also noted in urine Will start fluids and insulin Recheck BMP 05/13: We will increase sliding scale to high and start 10 units of long-acting #Warm right leg Venous duplex pending #DVT ppx: Lovenox Angela Huizar MD Charges/Coding Visit Charges Inpatient E&M: 91389 Subs Hosp L2
[2022-05-13 14:17] LABS: Pathologist Review Reviewed
[2022-05-13 14:40] LABS: Pathologist Review Reviewed
--- NOTE | 2022-05-13 14:48 | PCM.RX.CS ---
Consult Pharmacy has been consulted to manage selected antiobiotic: Vancomycin Type of Consult: New start Suspected Infection: Pneumonia Labs: Sodium 132 mmol/L (136-145) L 05/13/22 04:54 Potassium 3.8 mmol/L (3.5-5.1) 05/13/22 04:54 Chloride 100 mmol/L (98-107) 05/13/22 04:54 Carbon Dioxide 22.0 mmol/L (21.0-32.0) 05/13/22 04:54 Anion Gap 10 (5-15) 05/13/22 04:54 BUN 20 mg/dL (7-18) H 05/13/22 04:54 Creatinine 1.13 mg/dL (0.70-1.30) 05/13/22 04:54 Est GFR (MDRD) Af Amer 85 mL/min (>60) 05/13/22 04:54 Est GFR (MDRD) Non-Af 71 mL/min (>60) 05/13/22 04:54 BUN/Creatinine Ratio 17.7 RATIO (10-20) 05/13/22 04:54 Glucose 310 mg/dL (74-106) H 05/13/22 04:54 Microbiology: Microbiology 05/12/22 18:15 Sputum, Expectorated/Coughed Gram Stain - Final 05/12/22 18:15 Sputum, Expectorated/Coughed Respiratory Culture - Preliminary Staphylococcus aureus 05/12/22 13:42 Urine, Clean Catch Urine Culture - Preliminary Culture exhibits no growth. 05/12/22 13:42 Urine, Clean Catch Legionella Antigen - Final 05/12/22 13:42 Urine, Clean Catch Streptococcus pneumoniae Antigen (M - Final 05/12/22 16:15 Mucosa - Nasopharyngeal Respiratory Panel (PCR) - Final 05/12/22 16:15 Mucosa - Nasopharyngeal Influenza Types A,B Direct FA (KIYA) - Final 05/12/22 16:15 Nasal Secretion SARS-CoV-2 Antigen (Rapid) - Final Pharmacy Plan for Drug Dosing: NEW START IV VANCOMYCIN Consulting Physician: JM Indication: PNEUMONIA Goal Trough: 15-20 MG/DL SrCr: 1.13 MG/DL CrCl: 98.6 ML/MIN (USING ADJUSTED BODY WEIGHT OF 99 KG) Comments: LOADING DOSE OF 2000MG GIVEN 05/13 @ 1436 Vancomycin Dose: WILL START 1250MG Q8 @ 2230 AND GET A TROUGH PRIOR TO 4TH TOTAL DOSE PER POLICY Pending Level: 05/14/22 @ 1400 Pharmacy Service will continue to monitor and adjust dosing as required.
--- NOTE | 2022-05-13 15:29 | CASEMGMT ---
Call to [facility] in [place] and per tech, pt has another refill for his Trulicity but they cannot fill for 9 more days. SStsachin LOPEZ CM
[2022-05-13] MEDS: Budesonide Respules 0.5 MG/2 ML AMPUL.NEB. INHALATION (19:13)
[2022-05-13 19:26] LABS: Bedside Glucose 393 mg/dL (74-106)
[2022-05-13] MEDS: Montelukast 10 MG Tablet PO (21:59)
[2022-05-13] MEDS: Insulin Glargine-YFGN 100 UNIT/ML Pen 10 UNIT SC (22:26)
[2022-05-13] MEDS: BENZOCAINE/MENTHOL 1 LOZENGE MUCOUS MEM (23:32)
[2022-05-14] VITALS (16 sets, daily range): BP systolic 142–189; BP diastolic 79–109; PULSE 95–116; RESP 16–20; TEMP 36.3–37.3; O2SAT 92–97
[2022-05-14 00:01] LABS: Bedside Glucose 315 mg/dL (74-106)
[2022-05-14] MEDS: 0.9% Normal Saline 1,000 ML 100 ML IV ×2 (01:33→09:39)
[2022-05-14] MEDS: Acetaminophen 325 MG Tablet 650 MG PO ×3 (06:24→20:18)
[2022-05-14] MEDS: BENZOCAINE/MENTHOL 1 LOZENGE MUCOUS MEM (06:24)
[2022-05-14 06:31] LABS: Absolute Lymphocyte Count 0.76 X10^3/uL (0.83-4.51); Absolute Neutrophil Count 19.4 X10^3/uL (2.0-7.7); Basophil# 0.07 X10^3/uL; Basophil% 0.3 % (0-1); Eosinophil# 0.11 X10^3/uL; Eosinophils% 0.5 % (0-5); Hematocrit 39.8 % (40-54); Hemoglobin 13.3 g/dL (13.0-16.5); Lymphocyte # 0.76 X10^3/ul (0.83-4.51); Lymphocyte % 3.3 % (19-41); Mean Corp Hgb Conc 33.4 g/dL (32-36); Mean Corpuscular Hgb 28.1 pg (27.0-32.0); Mean Platelet Vol. 9.2 fl (6.2-12.0); Monocyte# 2.51 X10^3/uL; Monocyte% 10.9 % (0-10); NRBC Flagged by Analyzer 0 % (0-5); Neutrophil # 19.38 X10^3/uL (2.7-7.7); Neutrophil % 83.7 % (47-70); POSITIVE DIFFERENTIAL YES; Platelet Count 288 K/mm3 (150-450); RBC Distribution Width CV 12.7 % (11.6-14.6); RBC Distribution Width SD 38.9 fl (35.1-43.9); Red Blood Count 4.74 M/mm3 (4.6-6.2); White Blood Count 23.1 K/mm3 (4.4-11.0)
[2022-05-14] MEDS: Insulin Lispro 100 UNIT/ML INSULN.PEN SC ×4 (06:38→21:43)
[2022-05-14] MEDS: Albuterol 2.5 MG/3 ML VIAL.NEB. INHALATION ×3 (06:45→19:08)
[2022-05-14] MEDS: Budesonide Respules 0.5 MG/2 ML AMPUL.NEB. INHALATION ×2 (06:45→19:08)
[2022-05-14 06:50] LABS: Differential Indicated SCAN CRITERIA MET
[2022-05-14 06:53] LABS: Differential Comment SCANNED
[2022-05-14 07:26] LABS: ALB/GLOB Ratio 0.4 RATIO (0.9-2.4); AST(SGOT) 29 U/L (15-37); Alanine Aminotransfer ALT/SGPT 36 U/L (16-61); Albumin, Serum 2.1 g/dL (3.2-5.0); Alkaline Phosphatase 170 U/L (45-117); Anion Gap 11 (5-15); BUN 17 mg/dL (7-18); BUN/Creat Ratio 18.3 RATIO (10-20); Calcium,Total 8.6 mg/dL (8.5-10.1); Chloride 103 mmol/L (98-107); Creatinine, Serum 0.93 mg/dL (0.70-1.30); EST Glomerular Filtration Rate 89 mL/min (>60); Est Glom Filt Rate - Afr Amer 107 mL/min (>60); Globulin 4.8 g/dL (2.2-4.2); Glucose 237 mg/dL (74-106); Potassium 3.6 mmol/L (3.5-5.1); Protein, Total 6.9 g/dL (6.4-8.2); Sodium Level 135 mmol/L (136-145)
[2022-05-14 07:30] LABS: Bedside Glucose 228 mg/dL (74-106)
[2022-05-14] MEDS: Carvedilol 6.25 MG Tablet PO ×2 (09:38→21:50)
[2022-05-14] MEDS: Enoxaparin 40 MG/0.4 ML Syringe SC (09:38)
--- NOTE | 2022-05-14 11:47 | PN.HOSP_ITS ---
Subjective Subjective Still short of breath and coughing but is improving. No nausea. The discomfort in his chest is improving Objective Data Objective Data Vital Signs: Vital Signs Temp Pulse Resp BP Pulse Ox O2 Del Method 97.4 F L 100 20 H 142/79 H 94 Room Air 05/14/22 10:00 05/14/22 10:00 05/14/22 10:00 05/14/22 10:00 05/14/22 10:00 05/14/22 10:10 Oxygen Delivery Method Room Air Weight: 117.4 kg Body Mass Index (BMI) 31.1 Intake & Output: Intake and Output for Last 24 Hours 05/12/22 05/13/22 05/14/22 23:59 23:59 23:59 Intake Total 1653.33 / 1653.33 5206.67 / 5206.67 3625 / 3625 Output Total 400 / 400 Balance 1253.33 / 1253.33 5206.67 / 5206.67 3625 / 3625 Lab / Micro Data Result Diagrams: 05/14/22 06:01 05/14/22 06:01 Labs: Laboratory Results - last 24 hr 05/12/22 12:38: Diff Path Review Reviewed 05/13/22 04:54: Diff Path Review Reviewed 05/13/22 11:10: POC Glucose 451 H* 05/13/22 18:11: POC Glucose 393 H 05/13/22 22:20: POC Glucose 315 H 05/14/22 06:01: WBC 23.1 H, RBC 4.74, Hgb 13.3, Hct 39.8 L, MCV 84.0, MCH 28.1, MCHC 33.4, RDW Std Deviation 38.9, RDW Coeff of Randall 12.7, Plt Count 288, MPV 9.2, Immature Gran % (Auto) 1.300 H, Neut % (Auto) 83.7 H, Lymph % (Auto) 3.3 L, [place] % (Auto) 10.9 H, Eos % (Auto) 0.5, Baso % (Auto) 0.3, Absolute Neuts (auto) 19.4 H, Absolute Lymphs (auto) 0.76 L, Nucleated RBC % 0, Differential Comment SCANNED, Diff Path Review October05/14/22 06:01: Sodium 135 L, Potassium 3.6, Chloride 103, Carbon Dioxide 21.0, Anion Gap 11, BUN 17, Creatinine 0.93, Estim Creat Clear Calc 105.00, Est GFR (MDRD) Af Amer 107, Est GFR (MDRD) Non-Af 89, BUN/Creatinine Ratio 18.3, Glucose 237 H, Calcium 8.6, Total Bilirubin 0.70, AST 29, ALT 36, Alkaline Phosphatase 170 H, Total Protein 6.9, Albumin 2.1 L, Globulin 4.8 H, Albumin/Globulin Ratio 0.4 L 05/14/22 06:36: POC Glucose 228 H Micro: Microbiology 05/12/22 18:15 Sputum, Expectorated/Coughed Gram Stain - Final 05/12/22 18:15 Sputum, Expectorated/Coughed Respiratory Culture - Final Meth. resistant Staph. aureus 05/12/22 14:01 Blood Culture (Wb) - Anticubital Right Blood Culture - Preliminary No growth in 48 hours. 05/12/22 13:38 Blood Culture (Wb) - Anticubital Right Blood Culture - Preliminary No growth in 48 hours. 05/12/22 13:42 Urine, Clean Catch Urine Culture - Preliminary Culture exhibits no growth. 05/12/22 13:42 Urine, Clean Catch Legionella Antigen - Final 05/12/22 13:42 Urine, Clean Catch Streptococcus pneumoniae Antigen (M - Final 05/12/22 16:15 Mucosa - Nasopharyngeal Respiratory Panel (PCR) - Final 05/12/22 16:15 Mucosa - Nasopharyngeal Influenza Types A,B Direct FA (KIYA) - Final 05/12/22 16:15 Nasal Secretion SARS-CoV-2 Antigen (Rapid) - Final Physical Exam Const alert and oriented x3 General Appearance: cooperative and comfortable HEENT normocephalic and head/scalp atraumatic Eyes EOMs intact bilaterally Neck supple Resp normal respiratory effort Resp Narrative: Slightly more air movement but still diminished, especially at the bases Cardio regular rhythm GI soft to palpation, non-tender and non-distended Extremity normal to inspection Skin no rashes or lesions noted Neuro moves all extremities Psych affect normal Assessment & Plan Assessment/Plan (1) Community acquired pneumonia: PLAN: Plan #Acute hypoxemia secondary to bilateral MRSA pneumonia Presented with shortness of breath, cough, sputum production elevated white count CTA had been negative for PE but did demonstrate dense left upper lobe consolidation patchy infiltrate in right lower lobe COVID and respiratory panel were negative however sputum culture has grown MRSA Rocephin changed to vancomycin, will DC azithromycin Incentive spirometry #Type 2 diabetes mellitus Glucose significantly elevated and also noted in urine Was started on insulin, will increase long-acting to 15, continue glucose checks and sliding scale insulin #Warm right leg Venous duplex pending #DVT ppx: Lovenox Angela Huizar MD Charges/Coding Visit Charges Inpatient E&M: 36502 Subs Hosp L2
[2022-05-14 14:45] LABS: Vancomycin, Trough Level 10.3 ug/mL (5.0-15.0)
--- NOTE | 2022-05-14 15:54 | PCM.RX.CS ---
Consult Pharmacy has been consulted to manage selected antiobiotic: Vancomycin Type of Consult: Follow-up Suspected Infection: Pneumonia Prior Doses of Antibiotics Received/Current Regimen: Loading dose of 2gm, then 1250mg iv q8h x 3 doses. Labs: Sodium 135 mmol/L (136-145) L 05/14/22 06:01 Potassium 3.6 mmol/L (3.5-5.1) 05/14/22 06:01 Chloride 103 mmol/L (98-107) 05/14/22 06:01 Carbon Dioxide 21.0 mmol/L (21.0-32.0) 05/14/22 06:01 Anion Gap 11 (5-15) 05/14/22 06:01 BUN 17 mg/dL (7-18) 05/14/22 06:01 Creatinine 0.93 mg/dL (0.70-1.30) 05/14/22 06:01 Est GFR (MDRD) Af Amer 107 mL/min (>60) 05/14/22 06:01 Est GFR (MDRD) Non-Af 89 mL/min (>60) 05/14/22 06:01 BUN/Creatinine Ratio 18.3 RATIO (10-20) 05/14/22 06:01 Glucose 237 mg/dL (74-106) H 05/14/22 06:01 Vancomycin Trough 10.3 ug/mL (5.0-15.0) 05/14/22 13:59 Microbiology: Microbiology 05/12/22 13:42 Urine, Clean Catch Urine Culture - Final Culture exhibits no growth. 05/12/22 18:15 Sputum, Expectorated/Coughed Gram Stain - Final 05/12/22 18:15 Sputum, Expectorated/Coughed Respiratory Culture - Final Meth. resistant Staph. aureus 05/12/22 14:01 Blood Culture (Wb) - Anticubital Right Blood Culture - Preliminary No growth in 48 hours. 05/12/22 13:38 Blood Culture (Wb) - Anticubital Right Blood Culture - Preliminary No growth in 48 hours. 05/12/22 13:42 Urine, Clean Catch Legionella Antigen - Final 05/12/22 13:42 Urine, Clean Catch Streptococcus pneumoniae Antigen (M - Final 05/12/22 16:15 Mucosa - Nasopharyngeal Respiratory Panel (PCR) - Final 05/12/22 16:15 Mucosa - Nasopharyngeal Influenza Types A,B Direct FA (KIYA) - Final 05/12/22 16:15 Nasal Secretion SARS-CoV-2 Antigen (Rapid) - Final Weight used for dosin.4 kg Estimated Creatinine Clearance: 120ml/min Goal Trough: 15-20 mcg/mL Pharmacy Plan for Drug Dosing: Trough today was 10.3 (goal range 15-20 mcg/ml). SCrCl calculated to be ~120ml/min using an adjusted body weight of 98.9kg. Will increase dose from 1250mg to 1750mg iv q8h. Another trough level ordered for before 4th dose of new regimen. Pharmacy Service will continue to monitor and adjust dosing as required. Follow-Up Labs: Trough Vancomycin - 05.15.22 @2130 before 2200 dose
[2022-05-14 16:46] LABS: Bedside Glucose 333 mg/dL (74-106)
[2022-05-14 17:25] LABS: Bedside Glucose 367 mg/dL (74-106)
[2022-05-14] MEDS: 0.9% Saline Lock 10 ML Syringe IV (21:30)
[2022-05-14] MEDS: Insulin Glargine-YFGN 100 UNIT/ML Pen 15 UNIT SC (21:47)
[2022-05-14] MEDS: Montelukast 10 MG Tablet PO (21:50)
[2022-05-14 22:20] LABS: Bedside Glucose 275 mg/dL (74-106)
[2022-05-15] VITALS (20 sets, daily range): BP systolic 151–164; BP diastolic 85–95; PULSE 90–109; RESP 16–20; TEMP 36.7–37.4; O2SAT 92–97
[2022-05-15] MEDS: Insulin Lispro 100 UNIT/ML INSULN.PEN SC ×4 (06:29→21:54)
[2022-05-15 06:30] LABS: Absolute Neutrophil Count 14.1 X10^3/uL (2.0-7.7); Basophil# 0.06 X10^3/uL; Basophil% 0.3 % (0-1); Eosinophil# 0.26 X10^3/uL; Eosinophils% 1.5 % (0-5); Hematocrit 38.3 % (40-54); Hemoglobin 12.6 g/dL (13.0-16.5); Lymphocyte % 5.1 % (19-41); Mean Corp Hgb Conc 32.9 g/dL (32-36); Mean Corpuscular Hgb 27.6 pg (27.0-32.0); Mean Platelet Vol. 9.5 fl (6.2-12.0); Monocyte# 1.92 X10^3/uL; Monocyte% 10.9 % (0-10); NRBC Flagged by Analyzer 0 % (0-5); Neutrophil # 14.06 X10^3/uL (2.7-7.7); Neutrophil % 79.8 % (47-70); POSITIVE DIFFERENTIAL YES; Platelet Count 328 K/mm3 (150-450); RBC Distribution Width SD 39.7 fl (35.1-43.9); Red Blood Count 4.56 M/mm3 (4.6-6.2); White Blood Count 17.6 K/mm3 (4.4-11.0)
[2022-05-15] MEDS: Budesonide Respules 0.5 MG/2 ML AMPUL.NEB. INHALATION (06:33)
[2022-05-15] MEDS: Albuterol 2.5 MG/3 ML VIAL.NEB. INHALATION ×3 (06:33→19:34)
[2022-05-15 06:44] LABS: Differential Indicated SCAN CRITERIA MET
[2022-05-15 06:56] LABS: Bedside Glucose 264 mg/dL (74-106)
[2022-05-15 07:06] LABS: ALB/GLOB Ratio 0.4 RATIO (0.9-2.4); AST(SGOT) 31 U/L (15-37); Alanine Aminotransfer ALT/SGPT 36 U/L (16-61); Albumin, Serum 2.1 g/dL (3.2-5.0); Alkaline Phosphatase 186 U/L (45-117); Anion Gap 10 (5-15); BUN 16 mg/dL (7-18); BUN/Creat Ratio 16.9 RATIO (10-20); Calcium,Total 8.8 mg/dL (8.5-10.1); Chloride 103 mmol/L (98-107); Creatinine, Serum 0.94 mg/dL (0.70-1.30); EST Glomerular Filtration Rate 87 mL/min (>60); Est Glom Filt Rate - Afr Amer 105 mL/min (>60); Estimated Creatinine Clearance 103.88 ml/min; Globulin 4.8 g/dL (2.2-4.2); Glucose 219 mg/dL (74-106); Potassium 3.2 mmol/L (3.5-5.1); Protein, Total 6.9 g/dL (6.4-8.2); Sodium Level 136 mmol/L (136-145)
[2022-05-15 07:12] LABS: Differential Comment SCANNED
[2022-05-15] MEDS: Acetaminophen 325 MG Tablet 650 MG PO (08:28)
[2022-05-15] MEDS: Enoxaparin 40 MG/0.4 ML Syringe SC (08:28)
[2022-05-15] MEDS: Carvedilol 6.25 MG Tablet PO ×2 (08:29→21:56)
[2022-05-15 12:15] LABS: Bedside Glucose 371 mg/dL (74-106)
--- NOTE | 2022-05-15 14:51 | PN.HOSP_ITS ---
Subjective Subjective Generally improving, still has chest pain and shortness of breath as well as cough but better than presentation Objective Data Objective Data Vital Signs: Vital Signs Temp Pulse Resp BP Pulse Ox O2 Del Method 98.9 F 104 H 20 H 152/85 H 92 Room Air 05/15/22 13:08 05/15/22 13:16 05/15/22 13:16 05/15/22 13:08 05/15/22 08:24 05/15/22 13:08 Oxygen Delivery Method Room Air Weight: 119.1 kg Body Mass Index (BMI) 31.1 Intake & Output: Intake and Output for Last 24 Hours 05/13/22 05/14/22 05/15/22 23:59 23:59 23:59 Intake Total 5206.67 / 5206.67 5323.33 / 5323.33 835 / 835 Balance 5206.67 / 5206.67 5323.33 / 5323.33 835 / 835 Lab / Micro Data Result Diagrams: 05/15/22 05:15 05/15/22 05:15 Labs: Laboratory Results - last 24 hr 05/14/22 11:52: POC Glucose 333 H 05/14/22 16:59: POC Glucose 367 H 05/14/22 21:42: POC Glucose 275 H 05/15/22 05:15: WBC 17.6 H, RBC 4.56 L, Hgb 12.6 L, Hct 38.3 L, MCV 84.0, MCH 27.6, MCHC 32.9, RDW Std Deviation 39.7, RDW Coeff of Randall 13.0, Plt Count 328, MPV 9.5, Immature Gran % (Auto) 2.400 H, Neut % (Auto) 79.8 H, Lymph % (Auto) 5.1 L, [place] % (Auto) 10.9 H, Eos % (Auto) 1.5, Baso % (Auto) 0.3, Absolute Neuts (auto) 14.1 H, Absolute Lymphs (auto) 0.90, Nucleated RBC % 0, Differential Comment SCANNED, Diff Path Review October05/15/22 05:15: Sodium 136, Potassium 3.2 L, Chloride 103, Carbon Dioxide 23.0, Anion Gap 10, BUN 16, Creatinine 0.94, Estim Creat Clear Calc 103.88, Est GFR (MDRD) Af Amer 105, Est GFR (MDRD) Non-Af 87, BUN/Creatinine Ratio 16.9, Glucose 219 H, Calcium 8.8, Total Bilirubin 0.50, AST 31, ALT 36, Alkaline Phosphatase 186 H, Total Protein 6.9, Albumin 2.1 L, Globulin 4.8 H, Albumin/Globulin Ratio 0.4 L, Free T4 1.50 H 05/15/22 06:21: POC Glucose 264 H 05/15/22 11:51: POC Glucose 371 H Micro: Microbiology 05/12/22 13:42 Urine, Clean Catch Urine Culture - Final Culture exhibits no growth. 05/12/22 18:15 Sputum, Expectorated/Coughed Gram Stain - Final 05/12/22 18:15 Sputum, Expectorated/Coughed Respiratory Culture - Final Meth. resistant Staph. aureus 05/12/22 14:01 Blood Culture (Wb) - Anticubital Right Blood Culture - Preliminary No growth in 48 hours. 05/12/22 13:38 Blood Culture (Wb) - Anticubital Right Blood Culture - Preliminary No growth in 48 hours. 05/12/22 13:42 Urine, Clean Catch Legionella Antigen - Final 05/12/22 13:42 Urine, Clean Catch Streptococcus pneumoniae Antigen (M - Final 05/12/22 16:15 Mucosa - Nasopharyngeal Respiratory Panel (PCR) - Final 05/12/22 16:15 Mucosa - Nasopharyngeal Influenza Types A,B Direct FA (KIYA) - Final 05/12/22 16:15 Nasal Secretion SARS-CoV-2 Antigen (Rapid) - Final Physical Exam Const alert and oriented x3 General Appearance: cooperative and comfortable HEENT normocephalic and head/scalp atraumatic Eyes EOMs intact bilaterally Neck supple Resp normal respiratory effort Resp Narrative: Air movement improving Cardio regular rhythm GI soft to palpation, non-tender and non-distended Extremity Extremity Narrative: Moving all extremities Skin no rashes or lesions noted Neuro Neuro Narrative: No overt focal deficits appreciated Psych affect normal Assessment & Plan Assessment/Plan (1) Community acquired pneumonia: PLAN: Plan #Acute hypoxemia secondary to bilateral MRSA pneumonia Presented with shortness of breath, cough, sputum production elevated white count CTA had been negative for PE but did demonstrate dense left upper lobe consolidation patchy infiltrate in right lower lobe COVID and respiratory panel were negative however sputum culture has grown MRSA Rocephin changed to vancomycin, will DC azithromycin Incentive spirometry 05/15: Continues to slowly improve, continue vancomycin. If improves further tomorrow could consider transition of antibiotics and discharge #Type 2 diabetes mellitus Glucose significantly elevated and also noted in urine Was started on insulin, will increase long-acting to 15, continue glucose checks and sliding scale insulin 05/15: Increased long-acting insulin #Warm right leg Venous duplex pending 05/15: Resolved and preliminary duplex on chart negative #DVT ppx: Nicholas Huizar MD Charges/Coding Visit Charges Inpatient E&M: 02178 Subs Hosp L2
[2022-05-15 17:35] LABS: Bedside Glucose 318 mg/dL (74-106)
[2022-05-15] MEDS: Insulin Glargine-YFGN 100 UNIT/ML Pen 20 UNIT SC (21:55)
[2022-05-15] MEDS: Montelukast 10 MG Tablet PO (22:00)
[2022-05-15 22:18] LABS: Vancomycin, Trough Level 17.3 ug/mL (5.0-15.0)
[2022-05-15 23:21] LABS: Bedside Glucose 264 mg/dL (74-106)
[2022-05-16] VITALS (11 sets, daily range): BP systolic 150–159; BP diastolic 60–88; PULSE 80–94; RESP 18; TEMP 36.6–37.1; O2SAT 92–96
--- NOTE | 2022-05-16 00:05 | PCM.RX.CS ---
Consult Pharmacy has been consulted to manage selected antiobiotic: Vancomycin Type of Consult: Follow-up Labs: Sodium 136 mmol/L (136-145) 05/15/22 05:15 Potassium 3.2 mmol/L (3.5-5.1) L 05/15/22 05:15 Chloride 103 mmol/L (98-107) 05/15/22 05:15 Carbon Dioxide 23.0 mmol/L (21.0-32.0) 05/15/22 05:15 Anion Gap 10 (5-15) 05/15/22 05:15 BUN 16 mg/dL (7-18) 05/15/22 05:15 Creatinine 0.94 mg/dL (0.70-1.30) 05/15/22 05:15 Est GFR (MDRD) Af Amer 105 mL/min (>60) 05/15/22 05:15 Est GFR (MDRD) Non-Af 87 mL/min (>60) 05/15/22 05:15 BUN/Creatinine Ratio 16.9 RATIO (10-20) 05/15/22 05:15 Glucose 219 mg/dL (74-106) H 05/15/22 05:15 Vancomycin Trough 17.3 ug/mL (5.0-15.0) H 05/15/22 21:15 Microbiology: Microbiology 05/12/22 13:42 Urine, Clean Catch Urine Culture - Final Culture exhibits no growth. 05/12/22 18:15 Sputum, Expectorated/Coughed Gram Stain - Final 05/12/22 18:15 Sputum, Expectorated/Coughed Respiratory Culture - Final Meth. resistant Staph. aureus 05/12/22 14:01 Blood Culture (Wb) - Anticubital Right Blood Culture - Preliminary No growth in 48 hours. 05/12/22 13:38 Blood Culture (Wb) - Anticubital Right Blood Culture - Preliminary No growth in 48 hours. 05/12/22 13:42 Urine, Clean Catch Legionella Antigen - Final 05/12/22 13:42 Urine, Clean Catch Streptococcus pneumoniae Antigen (M - Final 05/12/22 16:15 Mucosa - Nasopharyngeal Respiratory Panel (PCR) - Final 05/12/22 16:15 Mucosa - Nasopharyngeal Influenza Types A,B Direct FA (KIYA) - Final 05/12/22 16:15 Nasal Secretion SARS-CoV-2 Antigen (Rapid) - Final Goal Trough: 15-20 mcg/mL Pharmacy Plan for Drug Dosing: Pharmacy Service will continue to monitor and adjust dosing as required. TROUGH 17.3 @ 8 HOURS. NO CHANGES, FOLLOW UP TROUGH IN 2 DAYS Follow-Up Labs: Peak Vancomycin Labs to be done on [date and time ordered]: 05/17 @ 4158
[2022-05-16] MEDS: Insulin Lispro 100 UNIT/ML INSULN.PEN SC ×2 (06:39→11:24)
[2022-05-16] MEDS: Budesonide Respules 0.5 MG/2 ML AMPUL.NEB. INHALATION (06:52)
[2022-05-16] MEDS: Albuterol 2.5 MG/3 ML VIAL.NEB. INHALATION ×2 (06:52→12:53)
[2022-05-16 07:20] LABS: Bedside Glucose 197 mg/dL (74-106)
[2022-05-16] MEDS: Carvedilol 6.25 MG Tablet PO (08:25)
[2022-05-16] MEDS: Enoxaparin 40 MG/0.4 ML Syringe SC (08:25)
[2022-05-16] MEDS: Acetaminophen 325 MG Tablet 650 MG PO (08:25)
--- NOTE | 2022-05-16 09:52 | PN.HOSP_ITS ---
Subjective Subjective Feeling well. States that his diffuse arthralgias are also improved as well. States he has had a history of boils under his armpit as well as his arm and in his nose. Was treated with antibiotics at that time. Objective Data Objective Data Vital Signs: Vital Signs Temp Pulse Resp BP Pulse Ox O2 Del Method 36.9 C 94 18 153/87 H 92 Room Air 05/16/22 06:42 05/16/22 06:52 05/16/22 06:52 05/16/22 06:42 05/16/22 06:52 05/16/22 06:52 Oxygen Delivery Method Room Air Weight: 119.4 kg Body Mass Index (BMI) 31.1 Intake & Output: Intake and Output for Last 24 Hours 05/14/22 05/15/22 05/16/22 23:59 23:59 23:59 Intake Total 5323.33 / 5323.33 1770 / 2370 1934 Balance 5323.33 / 5323.33 1769 / 0 1934 Lab / Micro Data Result Diagrams: 05/15/22 05:15 05/16/22 10:50 Labs: Laboratory Results - last 24 hr 05/15/22 11:51: POC Glucose 371 H 05/15/22 17:08: POC Glucose 318 H 05/15/22 21:15: Vancomycin Trough 17.3 H 05/15/22 21:49: POC Glucose 264 H 05/16/22 06:37: POC Glucose 197 H Micro: Microbiology 05/12/22 13:42 Urine, Clean Catch Urine Culture - Final Culture exhibits no growth. 05/12/22 18:15 Sputum, Expectorated/Coughed Gram Stain - Final 05/12/22 18:15 Sputum, Expectorated/Coughed Respiratory Culture - Final Meth. resistant Staph. aureus 05/12/22 14:01 Blood Culture (Wb) - Anticubital Right Blood Culture - Preliminary No growth in 48 hours. 05/12/22 13:38 Blood Culture (Wb) - Anticubital Right Blood Culture - P reliminary No growth in 48 hours. 05/12/22 13:42 Urine, Clean Catch Legionella Antigen - Final 05/12/22 13:42 Urine, Clean Catch Streptococcus pneumoniae Antigen (M - Final 05/12/22 16:15 Mucosa - Nasopharyngeal Respiratory Panel (PCR) - Final 05/12/22 16:15 Mucosa - Nasopharyngeal Influenza Types A,B Direct FA (KIYA) - Final 05/12/22 16:15 Nasal Secretion SARS-CoV-2 Antigen (Rapid) - Final Physical Exam Const alert and no apparent distress Resp normal respiratory effort, no retractions, no use of accessory muscles and clear to auscultation bilaterally Cardio regular rate, regular rhythm, S1 normal heart sound and S2 normal heart sound GI normal to inspection, nondistended, normoactive bowel sounds, soft to palpation, non-tender and non-distended Neuro Sensorium / Orientation: awake and alert Assessment & Plan Assessment/Plan (1) MRSA pneumonia: QUALIFIERS: Laterality: unspecified laterality Lung location: uns pecified part of lung Qualified Code(s): J15.212 - Pneumonia due to Methicillin resistant Staphylococcus aureus PLAN: #Acute hypoxemia secondary to bilateral MRSA pneumonia Presented with shortness of breath, cough, sputum production elevated white count CTA had been negative for PE but did demonstrate dense left upper lobe consolidation patchy infiltrate in right lower lobe COVID and respiratory panel were negative however sputum culture has grown MRSA Rocephin changed to vancomycin, will DC azithromycin Incentive spirometry 05/15: Continues to slowly improve, continue vancomycin. If improves further tomorrow could consider transition of antibiotics and discharge 05/16: Patient doing well. Ambulating throughout the hallways without any difficulty. Patient notes a history of boils on his arms and as well as the infection in his armpit previously. Those infections were about a year ago. 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 We will treat patient with Bactrim. Patient does have recurrent boils, it may be worthwhile doing a nasal MRSA and doing decolonization protocols. PLAN: Plan #Type 2 diabetes mellitus Glucose significantly elevated and also noted in urine Was started on insulin, will increase long-acting to 15, continue glucose checks and sliding scale insulin 05/15: Increased long-acting insulin #Warm right leg Venous duplex pending 05/15: Resolved and preliminary duplex on chart negative #DVT ppx: Lovenox
[2022-05-16 11:45] LABS: Bedside Glucose 297 mg/dL (74-106)
[2022-05-16 11:52] LABS: Anion Gap 8 (5-15); BUN 14 mg/dL (7-18); BUN/Creat Ratio 16.7 RATIO (10-20); Calcium,Total 8.6 mg/dL (8.5-10.1); Chloride 106 mmol/L (98-107); Creatinine, Serum 0.84 mg/dL (0.70-1.30); EST Glomerular Filtration Rate 100 mL/min (>60); Est Glom Filt Rate - Afr Amer 120 mL/min (>60); Estimated Creatinine Clearance 116.25 ml/min; Glucose 324 mg/dL (74-106); Potassium 3.1 mmol/L (3.5-5.1); Sodium Level 137 mmol/L (136-145)
--- NOTE | 2022-05-16 12:44 | DCINST_ITS ---
Discharge Instructions Diet Discharge Diet: 1999 Calorie Control Diet Activity Discharge Activity: Return to Normal Activity (slowly ease back into your normal routine. ) Return to work on:: 05/23/22 Dressing / Incision Call your doctor if you observe: Fever of 101 or Higher and Shortness of breath Follow Up Care Test Results: Test results from this visit will be discussed in further detail at your follow- up appointment, if applicable. Discharge Plan Admission Admit Date/Time: 05/12/22 15:29 Primary Reason for Your Visit: pneumonia, MRSA. Attending Provider: Oliver Culver Primary Care Provider: Arianne Liu Consulting Providers: Angela Huizar Instructions Additional Instructions / Restrictions: You will need your thyroid rechecked as an outpatient Discharge Orders/Prescriptions Prescriptions: New carvedilol 6.25 mg Tablet 6.25 mg PO BID Qty: 60 0RF sulfamethoxazole-trimethoprim [Bactrim DS] 800-160 mg tablet 1 tab PO BID Qty: 10 0RF Continued dulaglutide 3 mg/0.5 mL pen injector 0.75 mg subcut PAINTING montelukast 10 mg tablet 10 mg PO QHS Label Comments: take 1 tablet by mouth once daily fluticasone propion-salmeterol 500-50 mcg/dose blister with device 1 inh inhalation BID Label Comments: INHALE 1 PUFF BY MOUTH TWICE DAILY ibuprofen [Advil] 200 mg tablet 800 mg PO QHS (DME) Bilateral wrist splints for carpal tunnel syndrome See Rx Instructions .Route .MEDSUPPLY Qty: 2 0RF Rx Instructions: Wear at night Referrals / Follow Up: Arianne Liu MD [Primary Care Provider] - Within 1 Week Disposition Disposition (needs filled in before D/C Order can be placed): Home, Self Care
--- NOTE | 2022-05-16 12:53 | DS.PCM_ITS ---
Providers Date of Admission: 05/12/22 Primary Care Physician: Dr. Arianne Liu MD Reason For Visit: PNEUMONIA, UTI, SIRS Diagnosis Discharge Diagnosis (1) MRSA pneumonia: Status: Acute Code(s): J15.212 - Pneumonia due to Methicillin resistant Staphylococcus aureus Qualifiers: Laterality: unspecified laterality Lung location: unspecified part of lung Qualified Code(s): J15.212 - Pneumonia due to Methicillin resistant Stap hylococcus aureus Plan: #Acute hypoxemia secondary to bilateral MRSA pneumonia Presented with shortness of breath, cough, sputum production elevated white count CTA had been negative for PE but did demonstrate dense left upper lobe consolidation patchy infiltrate in right lower lobe COVID and respiratory panel were negative however sputum culture has grown MRSA Rocephin changed to vancomycin, will DC azithromycin Incentive spirometry 05/15: Continues to slowly improve, continue vancomycin. If improves further tomorrow could consider transition of antibiotics and discharge 05/16: Patient doing well. Ambulating throughout the hallways without any difficulty. Patient notes a history of boils on his arms and as well as the infection in his armpit previously. Those infections were about a year ago. 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 We will treat patient with Bactrim. Patient does have recurrent boils, it may be worthwhile doing a nasal MRSA and doing decolonization protocols. Plan #Type 2 diabetes mellitus Glucose significantly elevated and also noted in urine Was started on insulin, will increase long-acting to 15, continue glucose checks and sliding scale insulin blood sugars high. Resume Trulicity upon discharge. Pt may require insulin. Follow up with PCP. #Warm right leg Venous duplex pending 05/15: Resolved and preliminary duplex on chart negative #DVT ppx: Lovenox Medications at Discharge Home Medications dulaglutide 3 mg/0.5 mL subcutaneous pen injector 0.75 mg subcut PAINTING 07/27/21 fluticasone 500 mcg-salmeterol 50 mcg/dose blistr powdr for inhalation 1 inh inhalation BID 07/27/21 ibuprofen 200 mg tablet (Advil) 800 mg PO QHS 07/27/21 montelukast 10 mg tablet 10 mg PO QHS 07/27/21 Bilateral wrist splints for carpal tunnel syndrome #2 ea 01/18/22 carvedilol 6.25 mg tablet 6.25 mg PO BID #60 tabs 05/16/22 sulfamethoxazole 800 mg-trimethoprim 160 mg tablet (Bactrim DS) 1 tab PO BID #10 tabs 05/16/22 Hospital Course Operations None Procedures None Summary of Care Provided Minutes Spent on Discharge: 32 Weight / BMI Weight Weight: 119.4 kg Body Mass Index (BMI) 31.1 ABG / Lab / Microbiology Data Result Diagrams: 05/15/22 05:15 05/16/22 10:50 Laboratory: Laboratory Results - last 24 hr 05/15/22 17:08: POC Glucose 318 H 05/15/22 21:15: Vancomycin Trough 17.3 H 05/15/22 21:49: POC Glucose 264 H 05/16/22 06:37: POC Glucose 197 H 05/16/22 10:50: Sodium 137, Potassium 3.1 L, Chloride 106, Carbon Dioxide 23.0, Anion Gap 8, BUN 14, Creatinine 0.84, Estim Creat Clear Calc 116.25, Est GFR (MDRD) Af Amer 120, Est GFR (MDRD) Non-Af 100, BUN/Creatinine Ratio 16.7, Glucose 324 H, Calcium 8.6 05/16/22 11:23: POC Glucose 297 H Microbiology: Microbiology 05/12/22 13:42 Urine, Clean Catch Urine Culture - Final Culture exhibits no growth. 05/12/22 18:15 Sputum, Expectorated/Coughed Gram Stain - Final 05/12/22 18:15 Sputum, Expectorated/Coughed Respiratory Culture - Final Meth. resistant Staph. aureus 05/12/22 14:01 Blood Culture (Wb) - Anticubital Right Blood Culture - Preliminary No growth in 48 hours. 05/12/22 13:38 Blood Culture (Wb) - Anticubital Right Blood Culture - Preliminary No growth in 48 hours. 05/12/22 13:42 Urine, Clean Catch Legionella Antigen - Final 05/12/22 13:42 Urine, Clean Catch Streptococcus pneumoniae Antigen (M - Final 05/12/22 16:15 Mucosa - Nasopharyngeal Respiratory Panel (PCR) - Final 05/12/22 16:15 Mucosa - Nasopharyngeal Influenza Types A,B Direct FA (KIYA) - Final 05/12/22 16:15 Nasal Secretion SARS-CoV-2 Antigen (Rapid) - Final Radiography Diagnostic Testing: Radiology Impression Venous Doppler Study 05/13/22 08:39 Interpretation Summary Deep veins of the bilateral lower extremities are patent and compressible segmentally. There is no evidence of bilateral lower extremity deep vein thrombosis. The bilateral great saphenous veins appear patent and compressible segmentally. Ordering Physician: Angeal Huizar Referring Physician: Arianne Liu M.D. Performed By: Andreina Ji RVT D/C Instructions Discharge Diet: 2000 Calorie Control Diet Return to work on: 05/23/22 Call your doctor if you observe: Fever of 101 or Higher and Shortness of breath Meaningful Use Info Meaningful Use Diagnoses (Choose all that apply): None applicable Discharge Plan Admission Admit Date/Time: 05/12/22 15:29 Primary Reason for Your Visit: pneumonia, MRSA. Attending Provider: Oliver Culver Primary Care Provider: Arianne Liu Consulting Providers: Angela Huizar Instructions Additional Instructions / Restrictions: You will need your thyroid rechecked as an outpatient Discharge Orders/Prescriptions Prescriptions: New carvedilol 6.25 mg Tablet 6.25 mg PO BID Qty: 60 0RF sulfamethoxazole-trimethoprim [Bactrim DS] 800-160 mg tablet 1 tab PO BID Qty: 10 0RF Continued dulaglutide 3 mg/0.5 mL pen injector 0.75 mg subcut PAINTING montelukast 10 mg tablet 10 mg PO QHS Label Comments: take 1 tablet by mouth once daily fluticasone propion-salmeterol 500-50 mcg/dose blister with device 1 inh inhalation BID Label Comments: INHALE 1 PUFF BY MOUTH TWICE DAILY ibuprofen [Advil] 200 mg tablet 800 mg PO QHS (DME) Bilateral wrist splints for carpal tunnel syndrome See Rx Instructions .Route .MEDSUPPLY Qty: 2 0RF Rx Instructions: Wear at night Referrals / Follow Up: Arianne Liu MD [Primary Care Provider] - Within 1 Week Disposition Disposition (needs filled in before D/C Order can be placed): Home, Self Care Charges/Coding Visit Charges Inpatient E&M: 80862 Disch Hosp
[2022-05-16] MEDS: Potassium Chloride Oral Tablet 20 MEQ 40 MEQ PO (13:10)
--- NOTE | 2022-05-16 14:19 | CASEMGMT ---
Pt does not qualify for home oxygen and states no concerns with going home. SStsachin LOPEZ CM
--- NOTE | 2022-05-16 15:06 | PHA.DC.MC ---
Pharmacy Service has performed discharge medication reconciliation and counseling for this patient. 1. CARVEDILOL 6.25MG PO BID 2. SULFAMETHOXAZOLE/TRIMETHOPRIM DS 1T PO BID X 5 DAYS The patient's discharge medication list was reviewed for discrepancies and discrepancies were resolved. Home Medications dulaglutide 3 mg/0.5 mL subcutaneous pen injector 0.75 mg subcut PAINTING diabetes 07/27/21 fluticasone 500 mcg-salmeterol 50 mcg/dose blistr powdr for inhalation 1 inh inhalation BID breathing 07/27/21 ibuprofen 200 mg tablet (Advil) 800 mg PO QHS pain 07/27/21 montelukast 10 mg tablet 10 mg PO QHS breathing 07/27/21 Bilateral wrist splints for carpal tunnel syndrome #2 ea 01/18/22 carvedilol 6.25 mg tablet 6.25 mg PO BID #60 tabs 05/16/22 sulfamethoxazole 800 mg-trimethoprim 160 mg tablet (Bactrim DS) 1 tab PO BID #10 tabs 05/16/22 The patient was counseled on the following discharge medications and changes in medications for homegoing were reviewed. The Reason for Use, instructions for use, and potential side effects were reviewed for all new medications. The patient's questions regarding all of their medications were answered. The patient was able to verbally demonstrate an understanding of their discharge medications. Patient counseled by pharmacy affairs assistantFelipa.
[2022-05-18 08:58] LABS: Pathologist Review Reviewed
[2022-05-18 08:58] LABS: Pathologist Review Reviewed
== END 2022-05-16 15:04 | disposition home or self-care (01) | DRG 178 ==
LOC: ED 14:49 → PCU 16:00
PROVIDERS: Admitting Provider Internal Medicine; Emergency Provider Emergency Medicine; PCP Family Medicine
DX: J15.212 Pneumonia due to Methicillin resistant Staphylococcus aureus (principal); N39.0 Urinary tract infection, site not specified; E11.40 Type 2 diabetes mellitus with diabetic neuropathy, unspecified; E11.65 Type 2 diabetes mellitus with hyperglycemia; Z79.4 Long term (current) use of insulin; I10 Essential (primary) hypertension; J45.909 Unspecified asthma, uncomplicated; K21.9 Gastro-esophageal reflux disease without esophagitis; E86.0 Dehydration; Z20.822 Contact with and (suspected) exposure to COVID-19; R09.02 Hypoxemia; Z79.899 Other long term (current) drug therapy
CPT/HCPCS: 36415; 71045; 71275; 80048; 80053; 80202; 81001; 82962; 83605; 83735; 83880; 84439; 84443; 84484; 85025; 85379; 85610; 85730; 87040; 87070; 87077; 87086; 87186; 87205; 87449; 87633; 87804; 87811; 93005; 93970; 94640; 99251; 99285; J7030; J7040; J7050; Q9967; A4216; G0463; J0696

== ENCOUNTER → 2022-05-23 | Outpatient (CLI) | payer OTHER, SELFPAY ==
[2021-06-07 08:57] VITALS: BMI 30.8
[2022-05-23 15:46] LABS: T4 Total, Thyroxin 9.2 ug/dL (4.5-12.1); Thyroid Stim Hormone (TSH) 0.65 uIU/mL (0.358-3.74)
== END | disposition home or self-care (01) ==
LOC: MFPLAB 13:59
PROVIDERS: PCP Family Medicine; Visit Provider Family Medicine
DX: E03.9 Hypothyroidism, unspecified (principal)
CPT/HCPCS: 36415; 84436; 84443

== ENCOUNTER → 2023-12-01 | Outpatient (CLI) | payer OTHER, SELFPAY ==
[2021-06-07 08:57] VITALS: BMI 30.8
== END | disposition home or self-care (01) ==
LOC: LABSPEC 15:31
PROVIDERS: PCP Family Medicine; Referring Provider Family Medicine; Visit Provider Family Medicine
DX: L02.413 Cutaneous abscess of right upper limb (principal)
CPT/HCPCS: 87070; 87077; 87186; 87205

== ENCOUNTER → 2024-01-26 | Outpatient (CLI) | payer OTHER, SELFPAY ==
[2021-06-07 08:57] VITALS: BMI 30.8
[2024-01-26 12:19] LABS: Absolute Lymphocyte Count 1.65 X10^3/uL (0.83-4.51); Absolute Neutrophil Count 4.2 X10^3/uL (2.0-7.7); Basophil# 0.04 X10^3/uL; Basophil% 0.6 % (0-1); Eosinophil# 0.15 X10^3/uL; Eosinophils% 2.2 % (0-5); Hematocrit 46.9 % (40-54); Hemoglobin 15.5 g/dL (13.0-16.5); Lymphocyte # 1.65 X10^3/ul (0.83-4.51); Lymphocyte % 24.6 % (19-41); Mean Corpuscular Hgb 27.9 pg (27.0-32.0); Mean Corpuscular Volume 84.4 fL (80-94); Monocyte% 10.4 % (0-10); NRBC Flagged by Analyzer 0 % (0-5); Neutrophil # 4.15 X10^3/uL (2.7-7.7); Neutrophil % 61.9 % (47-70); Platelet Count 268 K/mm3 (150-450); RBC Distribution Width CV 12.6 % (11.6-14.6); RBC Distribution Width SD 38.9 fl (35.1-43.9); Red Blood Count 5.56 M/mm3 (4.6-6.2); White Blood Count 6.7 K/mm3 (4.4-11.0)
[2024-01-26 12:43] LABS: ALB/GLOB Ratio 0.9 RATIO (0.9-2.4); AST(SGOT) 26 U/L (15-37); Alanine Aminotransfer ALT/SGPT 40 U/L (16-61); Albumin, Serum 3.6 g/dL (3.2-5.0); Alkaline Phosphatase 127 U/L (45-117); Anion Gap 6 (5-15); BUN 16 mg/dL (7-18); Chloride 109 mmol/L (98-107); Cholesterol 178 mg/dL (200); Creatinine, Serum 1.07 mg/dL (0.70-1.30); EST Glomerular Filtration Rate 75 mL/min (>60); Est Glom Filt Rate - Afr Amer 90 mL/min (>60); Globulin 3.8 g/dL (2.2-4.2); Glucose 265 mg/dL (74-106); High Density Lipoprotein 46 mg/dL; PSA,Total - Annual Screen 0.42 ng/mL (0.00-4.00); Protein, Total 7.4 g/dL (6.4-8.2); Sodium Level 140 mmol/L (136-145); Thyroid Stim Hormone (TSH) 0.69 uIU/mL (0.358-3.74); Triglycerides 114 mg/dL; Very Low Density Lipoprotein 23 mg/dL (5-40)
[2024-01-26 12:49] LABS: Microalbumin,Random Urine 68.9 mg/L (NO RANGE EST.); Microalbumin:Creatinine Ratio 59.4 mg/g CRE (<30 mg/g CRE)
[2024-01-26 13:10] LABS: Hemoglobin A1c 10.4 % (3.8-5.6)
== END | disposition home or self-care (01) ==
LOC: BFHLAB 09:50
PROVIDERS: PCP Family Medicine; Referring Provider Family Medicine; Visit Provider Family Medicine
DX: Z00.00 Encounter for general adult medical examination without abnormal findings (principal); E11.42 Type 2 diabetes mellitus with diabetic polyneuropathy; R79.89 Other specified abnormal findings of blood chemistry; Z12.5 Encounter for screening for malignant neoplasm of prostate
CPT/HCPCS: 36415; 80053; 80061; 82043; 82570; 83036; 84153; 84443; 85025; G0103

== ENCOUNTER → 2025-01-10 | Outpatient (CLI) | payer OTHER, SELFPAY ==
[2021-06-07 08:57] VITALS: BMI 30.8
[2025-01-10 10:41] LABS: Hematocrit 45.3 % (40-54); Hemoglobin 15.3 g/dL (13.0-16.5); Immature Granulocytes Count 0.030 X10^3/uL (0.0-0.0); Mean Corp Hgb Conc 33.8 g/dL (32-36); Mean Corpuscular Volume 82.2 fL (80-94); Mean Platelet Vol. 9.9 fl (6.2-12.0); NRBC Flagged by Analyzer 0 % (0-5); Platelet Count 258 K/mm3 (150-450); RBC Distribution Width CV 13.2 % (11.6-14.6); RBC Distribution Width SD 39.6 fl (35.1-43.9); Red Blood Count 5.51 M/mm3 (4.6-6.2); White Blood Count 7.4 K/mm3 (4.4-11.0)
[2025-01-10 11:28] LABS: Creatinine, Urine (random) 149.00 mg/dL (39.00-259.00); Microalbumin,Random Urine 50.7 mg/L (<20 mg/L)
[2025-01-10 12:26] LABS: AST(SGOT) 26 U/L (<=37); Alanine Aminotransfer ALT/SGPT 34 U/L (<=46); Albumin, Serum 4.2 g/dL (3.4-4.8); Alkaline Phosphatase 87 U/L (40-129); Anion Gap 12 (5-15); BUN 17 mg/dL (4-19); BUN/Creat Ratio 16.3 RATIO (10-20); Calcium,Total 9.5 mg/dL (7.6-11.0); Carbon Dioxide 24.0 mmol/L (21.0-32.0); Chloride 104 mmol/L (98-108); Cholesterol 220 mg/dL (<=200); Globulin 2.9 g/dL (2.2-4.2); Glucose 189 mg/dL (70-99); Low Density Lipoprotein Calc. 144 mg/dL; Potassium 3.9 mmol/L (3.3-5.1); Triglycerides 112 mg/dL; Very Low Density Lipoprotein 22 mg/dL (5-40); Vitamin D,25 Hydroxy 37.4 ng/mL (30-100); cholesterol:hdl ratio screen 4.07
== END | disposition home or self-care (01) ==
LOC: MTLAB 07:59
PROVIDERS: PCP Family Medicine; Referring Provider Nurse Practitioner Family; Visit Provider Nurse Practitioner Family
DX: E11.65 Type 2 diabetes mellitus with hyperglycemia (principal); Z79.4 Long term (current) use of insulin
CPT/HCPCS: 36415; 80053; 80061; 82043; 82306; 82570; 84443; 85025